=== PATIENT | female | born 1930 | race Caucasian/White ===

== ENCOUNTER 2016-10-14 10:04 | Inpatient (IN) | payer OTHER ==
[~2016-10-14] VITALS: Ht 144.8 cm; Wt 116.8 kg
[~2016-10-14 10:04] MED LIST: ACET-1311 PO; ATV/1 PO; CARB25TA12 PO; EZET10TA63 PO; FURO80TA63 PO; IPRASOL4 INH; METO25TA3 PO; ONDA4TAB46 PO; OXYC-57 PO; POLY335019 PO; PRLSR20 PO; ROPI1TAB PO; SERT-234 PO; SIMV40TA2 PO
[2016-10-14 11:30] VITALS: BP 125/78; PULSE 65; TEMP 36.6; Ht 144.8 cm; Wt 116.8 kg
[2016-10-14] MEDS ORDERED: ALUMINUM/MAGNESIUM/SIMETH (MAALOX MAX) 30 ML UDC PO PRN (12:30)
[2016-10-14] MEDS ORDERED: ONDANSETRON INJ 2 MG/ML 2 ML VIAL IV PRN (12:30)
[2016-10-14] MEDS ORDERED: ACETAMINOPHEN 325 MG TAB PO PRN (12:30)
--- NOTE | 2016-10-14 12:42 | History and Physical ---
History & Physical Date & Time of Service: Oct 14, 2016 at 12:26 Chief Complaint: Infected Left Thigh Wound Primary Care Physician: Roby Saavedra M.D. History of Present Illness Source: patient, family (daugther) Pt is a 68 yo female with hx of Afib, diastolic CHF, DVT. CKD, GERD, parkinson' s who was initially diagnosed with a DVT in july and was placed on coumadin. Pt's daughter reports INR became elevated in ' and developed a hematoma in the left thigh. She was evaluated by Dr Roman at [facility] where hematoma was evacuated. She was subsequently following up with wound care and was placed on a wound vac. Per daughter, there was some disagreement with the care in relation to the dressings used and arrangements were made to continue care at wound care center here in [place]. Pt saw wound care initially on 10/08 in which wound was debrided and cx. Pt subsequently followed up with Dr. Abbott on 10/14 in which it was determined that enterococcus was cultured out. Pt was also seen by Dr Frazier (plastic surgery) in which further surgical intervention was not suggested. Pt was admitted to [facility] as a direct admit for IV antibiotics and for possible irrigating wound vac placement. Pt denies any fevers, chills, N/V/D, abd pain, chest pain or shortness of breath. Pt does report seeping yellowish, sometimes red drainage from wound site. Pt no longer taking coumadin and has had a IVC filter placed. Social History Smoking Status: Former Smoker (quit 10 yrs ago but smokes 1ppd for 20 yrs) Smokeless Tobacco Use: No Alcohol Use: none Drug Use: none Marital Status: Occupational Status: retired Multi-Drug Resistant Organisms History of MDRO: Yes Type of MDRO: VRE Allergies Coded Allergies: Ciprofloxacin (Unverified Allergy, Intermediate, RASH, 10/08/16) Home Medications Scheduled Acetaminophen (Tylenol), 650 MG PO q4hrs Carbidopa/Levodopa (Sinemet 25MG/100MG), 1 TAB PO DAILY Ezetimibe (Zetia), 10 MG PO DAILY Furosemide (Lasix), 80 MG PO BID Ipratropium-Albuterol (Duoneb), 1 TREATMENT INH Q4H Lorazepam (Ativan), 1 MG PO TID Metoprolol Succ (Toprol Xl) (Toprol-Xl), 25 MG PO DAILY Omeprazole (Prilosec), 20 MG PO DAILY Ropinirole (Requip), 2 MG PO TID Sertraline (Zoloft), 1 TAB PO DAILY Simvastatin (Zocor), 40 MG PO QPM Scheduled PRN Ondansetron Hcl (Zofran), 4 MG PO q4hrs PRN for Nausea Oxycodone/Acetaminophen 5MG/325MG (Percocet 5MG/325MG), 1 TABLET PO Q4H PRN for Pain Polyethylene Glycol 3350 (Miralax), 17 GM PO DAILY PRN for Constipation Review of Systems Constitutional: + weakness, + fatigue, No fever, No chills, No sweats, No weight loss ENT: No hearing loss, No unusual epistaxis, No nasal symptoms, No sore throat, No tinnitus Respiratory: No cough, No sputum, No wheezing, No shortness of breath, No dyspnea on exertion Cardiovascular: + edema, No chest pain, No orthopnea, No PND Abdomen: No pain, No nausea, No vomiting, No diarrhea Genitourinary - Female: No dysuria, No urinary frequency, No urinary urgency, No urinary incontinence Neurologic: No memory loss, No paralysis, No weakness Psychiatric: No depression symptoms, No anhedonism, No anxiety, No insomnia Endocrine: No fatigue, No excessive thirst Integumentary: + problem reported (draining wound on left hip), No rash, No itch Allergic / Immunologic: No environmental allergies, No seasonal allergies, No pet sensitivities Physical Exam Vital Signs Date Time Temp Pulse Resp B/P (MAP) Pulse Ox O2 Delivery O2 Flow Rate FiO2 10/14/16 11:30 36.6 65 18 125/78 General Appearance: WD/WN, + mild distress Head: normocephalic, atraumatic Eyes: normal inspection, PERRL, EOMI, sclerae normal Neck: supple, no adenopathy, thyroid normal, no JVD Respiratory/Chest: chest non-tender, no respiratory distress, no accessory muscle use, + decreased breath sounds Cardiovascular: regular rate, rhythm, no gallop, no JVD, no murmur Abdomen/GI: normal bowel sounds, non tender, soft, no organomegaly, no pulsatile mass Back: normal inspection, no CVA tenderness, no muscle spasm, normal range of motion Neurologic/Psych: alert, normal mood/affect, normal reflexes, oriented x 3 Skin: normal color, warm/dry, no rash, + pertinent finding (left hip wound granualtion tissue noted, serosanguionus drainage, no pain, dressing intact) Diagnostics Laboratory Results Results Past 24 Hours Test 10/14/16 12:22 10/14/16 12:23 Range/Units Microbiology Results 10/14/16 Blood Culture, Jack Batch Pending 10/14/16 Blood Culture, Jack Batch Pending Impression Assessment and Plan Pt is a 86 yo female with left hip wound ongoing for 3 months, previously from evacuation of left hip hematoma few months ago after was diagnosed with DVT and placed on coumadin back in july. Pt presents to [facility] as a direct admit from wound clinic for worsening left hip wound, and enterococcus growth noted on cx from debridement on 10/08 Left hip wound - Cont dressing and wound vac care. Cont wound care for possibility of irrigating wound vac. Obtain CBC. Start on daptomycin at this time based on sens and consult ID for further recs. Consult PT/OT as well Diastolic CHF - Not noted to be in exacerbation, will cont lasix and metoprolol , euvolemic at this time, obtain PRP CKD unknown stage, obtain PRP. Cont lasix at this time Recent DVT in july with IVC filter in place, no longer on coumadin Parkinsons, stable, cont sinemet and requip Dyslipdemia cont zocor DVT ppx with heparin Advanced Directives Existing Living Will: No Existing Power of Press Loader: Yes (VERA) VTE Prophylaxis VTE Risk Assessment Done? Y/N: Yes Risk Level: Moderate
[2016-10-14 13:15] LABS: BASO % 0.3 %; BASO ABS # 0.04 K/uL (0-0.2); COMPLETE YES; EOS % 4.2 %; HEMATOCRIT 43.2 % (37-47); IG% 0.3 %; LYMPH % 19.8 %; LYMPH ABS # 2.27 K/uL (1.2-3.4); MEAN CELL VOLUME 92.1 fL (80-100); MEAN CORPUSCULAR HEMOGLOBIN 26.9 pg (25-34); MEAN CORPUSCULAR HGB CONC 29.2 g/dl (32-36); MEAN PLATELET VOLUME 10.8 fL (7.4-10.4); MONO % 9.8 %; NEUT % 65.6 %; PLATELET COUNT 223 K/uL (130-400); RED BLOOD COUNT 4.69 M/uL (4.2-5.4); WHITE BLOOD COUNT 11.45 K/uL (4.8-10.8)
[2016-10-14 13:21] LABS: PROTHROMBIN TIME (PATIENT) 10.9 SECONDS (9.0-12.0)
[2016-10-14 13:32] LABS: BUN/CREATININE RATIO 20.6 (10-20); CREATININE 1.5 mg/dl (0.60-1.20); POTASSIUM 3.7 mmol/L (3.5-5.1)
[2016-10-14 13:36] LABS: ALB/GLOB RATIO 0.5 (0.9-2); CALCIUM 9.1 mg/dl (8.5-10.1)
[2016-10-14] MEDS ORDERED: LORAZEPAM 1 MG TAB PO SCH (14:00)
[2016-10-14] MEDS: DAPTOmycin IV 500 MG in SODIUM CHLORIDE 0.9% 50ML 50 ML IV SCH (14:26)
[2016-10-14] MEDS: ROPINIROLE HCL 1 MG TAB PO SCH ×2 (14:42→21:02)
[2016-10-14] MEDS: HEPARIN SOD 5000 UNIT/0.5 ML CARP SQ SCH ×2 (14:42→21:01)
[2016-10-14] MEDS ORDERED: NURSING VERBAL MED ORDER ONE (15:00)
[2016-10-14] MEDS ORDERED: LORAZEPAM 1 MG TAB PO PRN (15:00)
[2016-10-14] MEDS: OXYCODONE/ACETAMINOPHEN 5-325 TAB PO PRN (15:11)
--- NOTE | 2016-10-14 15:35 | Progress Note ---
Progress Note Date of Service Oct 14, 2016. Progress Note ID Consult Dictated #[id number] A/P: 1. Polymicrobial wound infection - E. faecalis, VRE 2. Leukocytosis -Agree with Dapto, will continue -Will likely require prolonged course with follow up at wound center -Will check baseline cpk, will need weekly cbc, cmp, esr, cpk while on abx -Will follow, thank you
[2016-10-14 15:49] VITALS: PULSE 88; O2SAT 98
[2016-10-14] MEDS: ALBUT/IPRATROP 3MG/0.5MG NEB 3 ML VIAL INH SCH ×2 (16:00→19:58)
--- NOTE | 2016-10-14 16:13 | INFECT. DISEASE CONSULTATION ---
DATE OF CONSULTATION: 10/14/2016 REQUESTING PHYSICIAN: Chris Rizo DO HISTORY OF PRESENT ILLNESS: This is an 86-year-old female who was a direct admission from the [facility]. She is a relatively new patient at the W[facility] Care Center and was initially seen there on 10/08/2016. She has had a longstanding left hip wound, which was previously treated at [facility] with a wound VAC. She is unable to tell me how long the wound VAC has been in place. She is unable to tell me if she was previously on antibiotics for this. In any event, she did undergo a wound culture on the at the [facility] here and cultures from that grew E. faecalis which was pansensitive, VRE, and peptostreptococcus. Culture results were reviewed today and the patient was subsequently transferred to the hospital for direct admission, PICC line placement and a change to an irrigating VAC. She was started on daptomycin today and appears to be tolerating this well. She does have a mild leukocytosis of 11.4. She denies any fevers or chills. She denies any pain in the hip, but does admit to some tenderness around the wound itself. She denies any chest pain, cough, shortness of breath, nausea, vomiting, diarrhea or abdominal pain. REVIEW OF SYSTEMS: Her remaining review of systems are reviewed and are unremarkable. PAST MEDICAL HISTORY: She has a medical history of AFib, CHF, history of DVT, chronic kidney disease, GERD and Parkinson's disease. SOCIAL HISTORY: Significant for a history of tobacco use. She denies any drug use or alcohol use. ALLERGIES: SHE HAS ALLERGY TO CIPRO. FAMILY HISTORY: Noncontributory. MEDICATIONS: Include Sinemet, Zetia, Toprol-XL, Zoloft, Protonix, Zocor, Lasix, DuoNebs, Ativan, subQ heparin, Requip, daptomycin, Tylenol, Maalox, Zofran and Percocet. PHYSICAL EXAMINATION: VITAL SIGNS: Temperature is 36.6, pulse 65, respiratory rate 18, blood pressure 125/78. GENERAL: She is awake, alert and oriented x3. She is in no acute distress. HEENT: Mucous membranes are moist. HEART: Regular. LUNGS: Clear bilaterally. ABDOMEN: Soft, nontender, nondistended. EXTREMITIES: There is no lower extremity edema bilaterally. Examination of the left thigh does reveal a wound with foul-smelling drainage. She also has significant necrosis and surrounding erythema and warmth. There is tenderness to palpation. LABORATORY STUDIES: CBC reveals a white blood cell count of 11.4, hemoglobin is 12.6, platelets are 223. Chemistry panel reveals a sodium of 140, potassium 3.7, chloride 96, bicarbonate 39, BUN 31, creatinine 1.5, glucose is 164. Previous culture again as Enterococcus faecalis, which was pansensitive and Enterococcus faecium, which is VRE. Blood cultures are pending. There is no imaging to review. ASSESSMENT AND PLAN: Infected left hip wound, polymicrobial. She is certainly indicated for daptomycin and will be continued on this. A PICC line has already been placed. Her wound is being placed during my examination. She will likely need a prolonged course of antibiotics and she will be planned to be followed by the infectious diseases service while in the hospital and at the [facility] post discharge from the hospital. Thank you for this consultation.
[2016-10-14 19:58] VITALS: PULSE 84; O2SAT 97
[2016-10-14] MEDS ORDERED: MICONAZOLE NITRATE POWDER 43 GM ONE (20:52)
[2016-10-14] MEDS: FUROSEMIDE 80 MG TAB PO SCH (21:00)
[2016-10-14] MEDS: SIMVASTATIN 40 MG TAB PO SCH (21:02)
[2016-10-15] VITALS (7 sets, daily range): BP systolic 105–117; BP diastolic 65–72; PULSE 68–80; TEMP 36.7–36.8; O2SAT 90–99
[2016-10-15] MEDS: HEPARIN SOD 5000 UNIT/0.5 ML CARP SQ SCH ×3 (05:51→21:44)
[2016-10-15 05:52] LABS: BASO % 0.4 %; BASO ABS # 0.05 K/uL (0-0.2); COMPLETE YES; EOS % 2.9 %; HEMATOCRIT 40.2 % (37-47); IG% 0.2 %; LYMPH % 19.8 %; LYMPH ABS # 2.46 K/uL (1.2-3.4); MEAN CELL VOLUME 91.8 fL (80-100); MEAN CORPUSCULAR HEMOGLOBIN 27.4 pg (25-34); MEAN CORPUSCULAR HGB CONC 29.9 g/dl (32-36); MONO % 9.7 %; PLATELET COUNT 206 K/uL (130-400); RED BLOOD COUNT 4.38 M/uL (4.2-5.4); WHITE BLOOD COUNT 12.45 K/uL (4.8-10.8)
[2016-10-15 06:29] LABS: BUN/CREATININE RATIO 25.1 (10-20); CALCIUM 8.7 mg/dl (8.5-10.1); CREATININE 1.3 mg/dl (0.60-1.20); POTASSIUM 3.9 mmol/L (3.5-5.1)
[2016-10-15] MEDS: ALBUT/IPRATROP 3MG/0.5MG NEB 3 ML VIAL INH SCH ×4 (07:18→19:32)
[2016-10-15] MEDS: ROPINIROLE HCL 1 MG TAB PO SCH ×3 (08:53→21:47)
[2016-10-15] MEDS: METOPROLOL SUCC 25MG EXT REL TAB PO SCH (08:53)
[2016-10-15] MEDS: EZETIMIBE 10MG TAB PO SCH (08:53)
[2016-10-15] MEDS: CARBIDOPA/LEVODOPA 25/100MG TAB PO SCH (08:53)
[2016-10-15] MEDS: PANTOprazole SOD 40 MG TAB PO SCH (08:53)
[2016-10-15] MEDS: FUROSEMIDE 80 MG TAB PO SCH ×2 (08:53→16:45)
[2016-10-15] MEDS: SERTRALINE HCL 100 MG TAB PO SCH (08:53)
[2016-10-15] MEDS: OXYCODONE/ACETAMINOPHEN 5-325 TAB PO PRN ×2 (09:00→15:16)
--- NOTE | 2016-10-15 11:10 | Progress Note ---
Subjective Date of Service: Oct 15, 2016. Subjective Pt evaluation today including: conversation w/ patient, conversation w/ family (daughter), physical exam, lab review, review of inpatient medication list Pain: denies pain PO Intake: adequate Voiding: no voiding problems patient doing well, no acute issues discussed getting PICC line, her daughter will sign her consent appreciate ID note, plan for weeks of Daptomycin d/w CM, will need authorization for the wound vac and IV Daptomycin, plan on being here over the weekend Review of Systems Neurologic: + weakness, + balance problems All Other Systems: Reviewed and Negative Medications Current Inpatient Medications Medications (Trade) Dose Ordered Sig/Marisela Route Start Time Stop Time Status Last Admin Dose Admin Heparin Sodium (Porcine) (Heparin Sq 5000 Unit/0.5ml) 5,000 unit Q8H SQ 10/14/16 14:00 11/13/16 13:59 10/15/16 05:51 5,000 UNIT Acetaminophen (Tylenol Tab) 650 mg Q4H PRN PO 10/14/16 12:30 11/13/16 12:29 Al Hydrox/Mg Hydrox/Simethicone (Maalox Max Susp) 15 ml Q4H PRN PO 10/14/16 12:30 11/13/16 12:29 Ondansetron HCl (Zofran Inj) 4 mg Q6H PRN IV 10/14/16 12:30 11/13/16 12:29 Daptomycin 500 mg/ Sodium Chloride 60 ml @ 100 mls/hr DAILY@1300 IV 10/14/16 13:00 10/24/16 12:59 10/14/16 14:26 100 MLS/HR Carbidopa/Levodopa (Sinemet 25/ 100MG Tab) 1 tab DAILY PO 10/15/16 08:00 11/14/16 07:59 10/15/16 08:53 1 TAB EZETIMIBE (Zetia Tab) 10 mg DAILY PO 10/15/16 08:00 11/14/16 07:59 10/15/16 08:53 10 MG Furosemide (Lasix Tab) 80 mg BID17 PO 10/14/16 20:00 11/13/16 19:59 10/15/16 08:53 80 MG Metoprolol Succinate (Toprol Xl Tab) 25 mg DAILY PO 10/15/16 08:00 11/14/16 07:59 10/15/16 08:53 25 MG Oxycodone/ Acetaminophen (Percocet 5-325mg Tab) 1 tab Q4H PRN PO 10/14/16 12:30 10/28/16 12:29 10/15/16 09:00 1 TAB Ropinirole HCl (Requip Tab) 2 mg TID PO 10/14/16 14:00 11/13/16 13:59 10/15/16 08:53 2 MG Sertraline HCl (Zoloft Tab) 100 mg DAILY PO 10/15/16 08:00 11/14/16 07:59 10/15/16 08:53 100 MG Simvastatin (Zocor Tab) 40 mg QPM PO 10/14/16 21:00 11/13/16 20:59 10/14/16 21:02 40 MG Pantoprazole Sodium (Protonix Tab) 40 mg QAM PO 10/15/16 08:00 11/14/16 07:59 10/15/16 08:53 40 MG Albuterol/ Ipratropium (Duoneb) 3 ml QIDR INH 10/14/16 16:00 11/13/16 15:59 10/15/16 07:18 3 ML Lorazepam (Ativan Tab) 1 mg TID PRN PO 10/14/16 15:00 11/13/16 14:59 Objective Vital Signs Date Time Temp Pulse Resp B/P (MAP) Pulse Ox O2 Delivery O2 Flow Rate FiO2 10/15/16 08:50 Nasal Cannula 3.0 10/15/16 07:21 36.7 74 20 117/72 (87) 99 Nasal Cannula 2.0 10/15/16 07:20 68 20 98 Nasal Cannula 2.0 10/15/16 00:05 36.8 75 20 105/65 (78) 95 Nasal Cannula 2.0 10/14/16 23:59 Nasal Cannula 2.0 10/14/16 19:58 84 18 97 Nasal Cannula 2.0 10/14/16 16:00 Nasal Cannula 2.0 10/14/16 15:49 88 18 98 Nasal Cannula 2.0 10/14/16 11:30 36.6 65 18 125/78 Nasal Cannula 3.0 Physical Exam General Appearance: no apparent distress, + obese Eyes: normal inspection, EOMI, sclerae normal ENT: normal ENT inspection, hearing grossly normal, pharynx normal Neck: supple, no adenopathy, no JVD, trachea midline Respiratory/Chest: chest non-tender, lungs clear, normal breath sounds, no respiratory distress, no accessory muscle use Cardiovascular: regular rate, rhythm, no edema, no gallop, no JVD, no murmur Abdomen: normal bowel sounds, non tender, soft, no organomegaly 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, no motor/sensory deficits, alert, normal mood/affect, oriented x 3 Skin: + pertinent finding (left thigh wound, dressed, non-tender) Laboratory Results Last 24 Hours Test 10/14/16 12:43 10/14/16 12:55 10/14/16 15:58 10/15/16 05:22 Prothrombin Time 10.9 SECONDS Prothromb Time International Ratio 1.0 Activated Partial Thromboplast Time 26.5 SECONDS Partial Thromboplastin Ratio 1.0 White Blood Count 11.45 K/uL 12.45 K/uL Red Blood Count 4.69 M/uL 4.38 M/uL Hemoglobin 12.6 g/dL 12.0 g/dL Hematocrit 43.2 % 40.2 % Mean Corpuscular Volume 92.1 fL 91.8 fL Mean Corpuscular Hemoglobin 26.9 pg 27.4 pg Mean Corpuscular Hemoglobin Concent 29.2 g/dl 29.9 g/dl Platelet Count 223 K/uL 206 K/uL Mean Platelet Volume 10.8 fL 11.0 fL Neutrophils (%) (Auto) 65.6 % 67.0 % Lymphocytes (%) (Auto) 19.8 % 19.8 % Monocytes (%) (Auto) 9.8 % 9.7 % Eosinophils (%) (Auto) 4.2 % 2.9 % Basophils (%) (Auto) 0.3 % 0.4 % Neutrophils # (Auto) 7.51 K/uL 8.35 K/uL Lymphocytes # (Auto) 2.27 K/uL 2.46 K/uL Monocytes # (Auto) 1.12 K/uL 1.21 K/uL Eosinophils # (Auto) 0.48 K/uL 0.36 K/uL Basophils # (Auto) 0.04 K/uL 0.05 K/uL RDW Standard Deviation 59.9 fL 59.0 fL RDW Coefficient of Variation 17.6 % 17.6 % Immature Granulocyte % (Auto) 0.3 % 0.2 % Immature Granulocyte # (Auto) 0.03 K/uL 0.02 K/uL Sodium Level 140 mmol/L 142 mmol/L Potassium Level 3.7 mmol/L 3.9 mmol/L Chloride Level 96 mmol/L 98 mmol/L Carbon Dioxide Level 39 mmol/L 39 mmol/L Anion Gap 5.0 mmol/L 5.0 mmol/L Blood Urea Nitrogen 31 mg/dl 33 mg/dl Creatinine 1.50 mg/dl 1.30 mg/dl Est Creatinine Clear Calc Drug Dose 29.7 ml/min 34.3 ml/min Estimated GFR () 36.2 43.0 Estimated GFR (Non- 31.2 37.1 BUN/Creatinine Ratio 20.6 25.1 Random Glucose 164 mg/dl 99 mg/dl Calcium Level 9.1 mg/dl 8.7 mg/dl Total Bilirubin 0.4 mg/dl Aspartate Amino Transf (AST/SGOT) 13 U/L Alanine Aminotransferase (ALT/SGPT) 7 U/L Alkaline Phosphatase 73 U/L Total Protein 7.3 gm/dl Albumin 2.4 gm/dl Globulin 4.9 gm/dl Albumin/Globulin Ratio 0.5 Total Creatine Kinase 17 U/L Assessment and Plan Pt is a 86 yo female with left hip wound ongoing for 3 months, previously from evacuation of left hip hematoma few months ago after was diagnosed with DVT and placed on coumadin back in july. Pt presents to [facility] as a direct admit from wound clinic for worsening left hip wound, and enterococcus growth noted on cx from debridement on 10/08 - Left hip wound - outpatient culture grew VRE, infectious disease recommends Daptomycin IV daily wound care recommending an irrigating wound vac which can be difficult to get insurance authorization for labs and vitals stable will get PICC line placed d/w CM, will need to get insurance authorization for wound vac, Dapto, anticipate patient here over the weekend Diastolic CHF - euvolemic, no exacerbation, will cont lasix and metoprolol CKD stage III - stable, continue Lasix as prescribed Recent DVT in july with IVC filter in place, no longer on coumadin Parkinsons, stable, cont sinemet and requip Dyslipdemia cont zocor DVT ppx with heparin SC
--- NOTE | 2016-10-15 11:11 | Medical Student: [facility] ---
Med Student Progress Note Date of Service Oct 15, 2016. Subjective Pt evaluation today including: conversation w/ patient, conversation w/ family (daughter Ivania), physical exam, chart review Pain: 0 PO Intake: good Voiding: no voiding problems Ms Deena Ybarra is an 86 yo obese female with a 2 month history of a poorly healing wound on her L hip that was recently cultured and found to be VRE. She was admitted yesterday from the wound care clinic for placement of a wound vac with saline wash after her wound was found to be more wet and warm than normal. She notes no fevers, chills, or other signs of infection. She denies headache, nausea, vomiting, loss of appetite, chest pain, shortness of breath, diarrhea or constipation. She is a resident of a skilled care facility in [place] and would like to go back there prior to going home. Review of Systems Constitutional: + see HPI, No fever, No chills, No sweats, No weight loss, No weakness, No fatigue Eyes: No problem reported ENT: No problem reported Respiratory: No problem reported Cardiac: No problem reported Abdomen: No problem reported Musculoskeletal: No problem reported Female : No problem reported Neurologic: No problem reported Psychiatric: No problem reported Heme: No problem reported Skin: + new/changing skin lesions (5cm wound on L lateral thigh/hip) Objective Vital Signs Date Time Temp Pulse Resp B/P (MAP) Pulse Ox O2 Delivery O2 Flow Rate FiO2 10/15/16 08:50 Nasal Cannula 3.0 10/15/16 07:21 36.7 74 20 117/72 (87) 99 Nasal Cannula 2.0 10/15/16 07:20 68 20 98 Nasal Cannula 2.0 10/15/16 00:05 36.8 75 20 105/65 (78) 95 Nasal Cannula 2.0 10/14/16 23:59 Nasal Cannula 2.0 10/14/16 19:58 84 18 97 Nasal Cannula 2.0 10/14/16 16:00 Nasal Cannula 2.0 10/14/16 15:49 88 18 98 Nasal Cannula 2.0 10/14/16 11:30 36.6 65 18 125/78 Nasal Cannula 3.0 Physical Exam Comments: Vitals: See above. General: Wd/Wn. Obese, resting comfortably in on distress. HEENT: NCAT, EOMI, PERRLA. No anterior or posterior cervical lymphadenopathy. Moist mucus membranes. CV: Heart sounds soft. S1, S2. Slight decrescendo systolic murmur heard best over L second intercostal space. Regular rate and rhythm. Resp: Slight expiratory wheeze in L lower lobe. Other lobes clear to auscultation. No respiratory distress or accessory muscle use. Abdomen: soft, non-tender, non-distended. active bowel sounds. Obese. Extremities: Trace edema bilaterally of lower legs. Erythema over lateral and anterior lower legs, chronic. Wound with vac on L lateral thigh/hip. Some warmth and erythema round vac, otherwise clean and dressing intact. Neuro/Psych: AOx3. No depression or anxiety. Laboratory Results Last 24 Hours Test 10/14/16 12:43 10/14/16 12:55 10/14/16 15:58 10/15/16 05:22 Prothrombin Time 10.9 SECONDS Prothromb Time International Ratio 1.0 Activated Partial Thromboplast Time 26.5 SECONDS Partial Thromboplastin Ratio 1.0 White Blood Count 11.45 K/uL 12.45 K/uL Red Blood Count 4.69 M/uL 4.38 M/uL Hemoglobin 12.6 g/dL 12.0 g/dL Hematocrit 43.2 % 40.2 % Mean Corpuscular Volume 92.1 fL 91.8 fL Mean Corpuscular Hemoglobin 26.9 pg 27.4 pg Mean Corpuscular Hemoglobin Concent 29.2 g/dl 29.9 g/dl Platelet Count 223 K/uL 206 K/uL Mean Platelet Volume 10.8 fL 11.0 fL Neutrophils (%) (Auto) 65.6 % 67.0 % Lymphocytes (%) (Auto) 19.8 % 19.8 % Monocytes (%) (Auto) 9.8 % 9.7 % Eosinophils (%) (Auto) 4.2 % 2.9 % Basophils (%) (Auto) 0.3 % 0.4 % Neutrophils # (Auto) 7.51 K/uL 8.35 K/uL Lymphocytes # (Auto) 2.27 K/uL 2.46 K/uL Monocytes # (Auto) 1.12 K/uL 1.21 K/uL Eosinophils # (Auto) 0.48 K/uL 0.36 K/uL Basophils # (Auto) 0.04 K/uL 0.05 K/uL RDW Standard Deviation 59.9 fL 59.0 fL RDW Coefficient of Variation 17.6 % 17.6 % Immature Granulocyte % (Auto) 0.3 % 0.2 % Immature Granulocyte # (Auto) 0.03 K/uL 0.02 K/uL Sodium Level 140 mmol/L 142 mmol/L Potassium Level 3.7 mmol/L 3.9 mmol/L Chloride Level 96 mmol/L 98 mmol/L Carbon Dioxide Level 39 mmol/L 39 mmol/L Anion Gap 5.0 mmol/L 5.0 mmol/L Blood Urea Nitrogen 31 mg/dl 33 mg/dl Creatinine 1.50 mg/dl 1.30 mg/dl Est Creatinine Clear Calc Drug Dose 29.7 ml/min 34.3 ml/min Estimated GFR () 36.2 43.0 Estimated GFR (Non- 31.2 37.1 BUN/Creatinine Ratio 20.6 25.1 Random Glucose 164 mg/dl 99 mg/dl Calcium Level 9.1 mg/dl 8.7 mg/dl Total Bilirubin 0.4 mg/dl Aspartate Amino Transf (AST/SGOT) 13 U/L Alanine Aminotransferase (ALT/SGPT) 7 U/L Alkaline Phosphatase 73 U/L Total Protein 7.3 gm/dl Albumin 2.4 gm/dl Globulin 4.9 gm/dl Albumin/Globulin Ratio 0.5 Total Creatine Kinase 17 U/L Assessment and Plan Assessment and Plan: Deena Ybarra is an 86 y female admitted from the wound clinic yesterday with a non-healing wound on the L lateral thigh/hip with concern for infection. Individual assessment and plan are as follows: 1. Wound on L lateral thigh: Wound vac in place with saline wash. On daptomycin 500mg qd per ID. Cultures one week ago showed vancomycin resistance. Will consent for PICC line in anticipation of 2 weeks dapto at [facility]. Blood cultures pending. 2. Parkinson Disease: Continue Sinemet 25/100 qd. 3. Hyperlipidemia: Continue zetia 10mg qd. 4. Diastolic CHF: Continue furosemide 80mg bid. Continue Metoprolol succinate 25mg qd. 5. Bronchitis: Resolved. Duonebs q3 prn. 6. Anxiety: Lorazepam 1mg tid prn. 7. Restless Leg: Requip 2mg tid. 8. Chronic pain: Percocet q4 prn. 9. DVT proph: Heparin 5000units q8. IVC filter in place following DVT two months ago, July 30. Dispo: Back to SNF in [place] following removal of wound vac, sooner if insurance will cover. Continue iv daptomycin x2 weeks. Followup with wound clinic as outpatient. Continued [facility] stay due to: other (wound vac in place, IV abx.) Discharge planning: fdc facility (in [place])
--- NOTE | 2016-10-15 12:27 | Progress Note ---
Subjective Date of Service: Oct 15, 2016. Subjective pt tolerating dapto, had vac placed yesterday. for picc line, awaiting insurance approval of dapto. wbc slightly elevated today, tolerating abx, afebrile. no overnight events. Objective Vital Signs Date Time Temp Pulse Resp B/P (MAP) Pulse Ox O2 Delivery O2 Flow Rate FiO2 10/15/16 11:18 76 20 90 Nasal Cannula 2.0 10/15/16 08:50 Nasal Cannula 3.0 10/15/16 07:21 36.7 74 20 117/72 (87) 99 Nasal Cannula 2.0 10/15/16 07:20 68 20 98 Nasal Cannula 2.0 10/15/16 00:05 36.8 75 20 105/65 (78) 95 Nasal Cannula 2.0 10/14/16 23:59 Nasal Cannula 2.0 10/14/16 19:58 84 18 97 Nasal Cannula 2.0 10/14/16 16:00 Nasal Cannula 2.0 10/14/16 15:49 88 18 98 Nasal Cannula 2.0 Laboratory Results Last 24 Hours Test 10/14/16 12:43 10/14/16 12:55 10/14/16 15:58 10/15/16 05:22 Prothrombin Time 10.9 SECONDS Prothromb Time International Ratio 1.0 Activated Partial Thromboplast Time 26.5 SECONDS Partial Thromboplastin Ratio 1.0 White Blood Count 11.45 K/uL 12.45 K/uL Red Blood Count 4.69 M/uL 4.38 M/uL Hemoglobin 12.6 g/dL 12.0 g/dL Hematocrit 43.2 % 40.2 % Mean Corpuscular Volume 92.1 fL 91.8 fL Mean Corpuscular Hemoglobin 26.9 pg 27.4 pg Mean Corpuscular Hemoglobin Concent 29.2 g/dl 29.9 g/dl Platelet Count 223 K/uL 206 K/uL Mean Platelet Volume 10.8 fL 11.0 fL Neutrophils (%) (Auto) 65.6 % 67.0 % Lymphocytes (%) (Auto) 19.8 % 19.8 % Monocytes (%) (Auto) 9.8 % 9.7 % Eosinophils (%) (Auto) 4.2 % 2.9 % Basophils (%) (Auto) 0.3 % 0.4 % Neutrophils # (Auto) 7.51 K/uL 8.35 K/uL Lymphocytes # (Auto) 2.27 K/uL 2.46 K/uL Monocytes # (Auto) 1.12 K/uL 1.21 K/uL Eosinophils # (Auto) 0.48 K/uL 0.36 K/uL Basophils # (Auto) 0.04 K/uL 0.05 K/uL RDW Standard Deviation 59.9 fL 59.0 fL RDW Coefficient of Variation 17.6 % 17.6 % Immature Granulocyte % (Auto) 0.3 % 0.2 % Immature Granulocyte # (Auto) 0.03 K/uL 0.02 K/uL Sodium Level 140 mmol/L 142 mmol/L Potassium Level 3.7 mmol/L 3.9 mmol/L Chloride Level 96 mmol/L 98 mmol/L Carbon Dioxide Level 39 mmol/L 39 mmol/L Anion Gap 5.0 mmol/L 5.0 mmol/L Blood Urea Nitrogen 31 mg/dl 33 mg/dl Creatinine 1.50 mg/dl 1.30 mg/dl Est Creatinine Clear Calc Drug Dose 29.7 ml/min 34.3 ml/min Estimated GFR () 36.2 43.0 Estimated GFR (Non- 31.2 37.1 BUN/Creatinine Ratio 20.6 25.1 Random Glucose 164 mg/dl 99 mg/dl Calcium Level 9.1 mg/dl 8.7 mg/dl Total Bilirubin 0.4 mg/dl Aspartate Amino Transf (AST/SGOT) 13 U/L Alanine Aminotransferase (ALT/SGPT) 7 U/L Alkaline Phosphatase 73 U/L Total Protein 7.3 gm/dl Albumin 2.4 gm/dl Globulin 4.9 gm/dl Albumin/Globulin Ratio 0.5 Total Creatine Kinase 17 U/L Assessment and Plan (1) Unspecified open wound, left hip, sequela Assessment & Plan: continue dapto for vre hip wound. will need weekly cbc,cmp, esr, cpk while on abx. will plan to follow at wound center post d/c. no contraindication to d/c from ID standpoint when plan for abx in place. Continued [facility] stay due to: other (wound vac in place, IV abx.) Discharge planning: fpc facility (in [place])
[2016-10-15] MEDS: DAPTOmycin IV 500 MG in SODIUM CHLORIDE 0.9% 50ML 50 ML IV SCH (13:21)
--- NOTE | 2016-10-15 13:47 | WOUND PROGRESS NOTE ---
DATE: 10/15/2016 SUBJECTIVE: The patient is seen today for reevaluation of a post-evacuated hematoma to the left thigh with associated underlying cellulitis. The patient was admitted yesterday due to failed outpatient therapy for intravenous antibiotic therapy along with irrigating wound VAC therapy. The patient has no complaints today. Denies any fever, chills or night sweats. Denies any significant pain, swelling or redness in the leg. OBJECTIVE: The patient's vital signs were reviewed and found to be unremarkable. The patient is afebrile. There is no substantial change in the measurements obtained yesterday at the wound site. There is, however, a decrease in central slough and no evidence of any significant necrotic tissue. There is no periwound erythema or edema noted. There is still an odor present, although reduced from yesterday. ASSESSMENT: Post-evacuation hematoma, left thigh with underlying cellulitis. PLAN: At this time, the site required no further debridement. The wound will continue to be managed with irrigating wound VAC 10 on 2 hours off with normal saline as well as black foam at 125 mm of negative pressure. We will continue the irrigating VAC for the next 72 hours and then anticipate transfer to a routine outpatient VAC for ongoing therapy. The patient will continue her current antibiotic therapy as prescribed. The patient will continue to be monitored while an inpatient and evaluated on an outpatient basis upon discharge.
[2016-10-15] MEDS: SIMVASTATIN 40 MG TAB PO SCH (21:47)
[2016-10-16] VITALS (7 sets, daily range): BP systolic 96–116; BP diastolic 57–76; PULSE 63–97; TEMP 36.4–36.6; O2SAT 85–100
[2016-10-16] MEDS: HEPARIN SOD 5000 UNIT/0.5 ML CARP SQ SCH ×3 (05:47→21:18)
[2016-10-16 06:53] LABS: BASO % 0.3 %; BASO ABS # 0.04 K/uL (0-0.2); COMPLETE YES; EOS % 3.9 %; HEMATOCRIT 40.2 % (37-47); IG% 0.2 %; LYMPH % 17.4 %; LYMPH ABS # 2.11 K/uL (1.2-3.4); MEAN CELL VOLUME 90.5 fL (80-100); MEAN CORPUSCULAR HEMOGLOBIN 25.9 pg (25-34); MEAN CORPUSCULAR HGB CONC 28.6 g/dl (32-36); MEAN PLATELET VOLUME 10.9 fL (7.4-10.4); NEUT % 68.2 %; PLATELET COUNT 221 K/uL (130-400); RED BLOOD COUNT 4.44 M/uL (4.2-5.4); WHITE BLOOD COUNT 12.15 K/uL (4.8-10.8)
[2016-10-16 07:20] LABS: BUN/CREATININE RATIO 22.6 (10-20); CALCIUM 8.6 mg/dl (8.5-10.1); CREATININE 1.6 mg/dl (0.60-1.20)
[2016-10-16] MEDS: ALBUT/IPRATROP 3MG/0.5MG NEB 3 ML VIAL INH SCH ×4 (07:34→19:05)
--- NOTE | 2016-10-16 08:40 | Progress Note ---
Subjective Date of Service: Oct 16, 2016. Subjective pt has no complaints or problems understands need to be on irrigating wound vac over weekend and then out on regular wound vac if wound improved Review of Systems Constitutional: + weakness, + fatigue, No fever, No chills Respiratory: No cough, No shortness of breath Cardiac: + edema, No chest pain, No orthopnea Abdomen: No pain, No nausea, No vomiting, No diarrhea Musculoskeletal: + joint pain, + muscle pain, + swelling Female : No dysuria, No urinary frequency Objective Vital Signs Date Time Temp Pulse Resp B/P (MAP) Pulse Ox O2 Delivery O2 Flow Rate FiO2 10/16/16 07:52 36.6 69 17 116/76 (89) 100 Nasal Cannula 2.0 10/16/16 07:34 72 20 96 Nasal Cannula 2.0 10/16/16 00:11 36.4 79 20 104/60 (75) 96 Nasal Cannula 3.0 10/15/16 23:59 Room Air 10/15/16 19:33 80 20 94 Nasal Cannula 2.0 10/15/16 16:00 Room Air 10/15/16 15:42 36.7 76 18 106/69 (81) 98 Nasal Cannula 2.0 10/15/16 15:27 76 20 90 Nasal Cannula 2.0 10/15/16 11:18 76 20 90 Nasal Cannula 2.0 10/15/16 08:50 Nasal Cannula 3.0 Physical Exam General Appearance: + mild distress, + obese Eyes: PERRL, EOMI Neck: supple, trachea midline Respiratory/Chest: chest non-tender, lungs clear, + decreased breath sounds ( bases) Cardiovascular: regular rate, rhythm, no murmur Abdomen: normal bowel sounds, non tender, soft Extremities: + pedal edema, + pertinent finding (vac on left hip site looks good no erythema or swelling) Neurologic/Psychiatric: alert, oriented x 3 Laboratory Results Last 24 Hours Test 10/16/16 06:29 White Blood Count 12.15 K/uL Red Blood Count 4.44 M/uL Hemoglobin 11.5 g/dL Hematocrit 40.2 % Mean Corpuscular Volume 90.5 fL Mean Corpuscular Hemoglobin 25.9 pg Mean Corpuscular Hemoglobin Concent 28.6 g/dl Platelet Count 221 K/uL Mean Platelet Volume 10.9 fL Neutrophils (%) (Auto) 68.2 % Lymphocytes (%) (Auto) 17.4 % Monocytes (%) (Auto) 10.0 % Eosinophils (%) (Auto) 3.9 % Basophils (%) (Auto) 0.3 % Neutrophils # (Auto) 8.29 K/uL Lymphocytes # (Auto) 2.11 K/uL Monocytes # (Auto) 1.21 K/uL Eosinophils # (Auto) 0.47 K/uL Basophils # (Auto) 0.04 K/uL RDW Standard Deviation 59.0 fL RDW Coefficient of Variation 17.6 % Immature Granulocyte % (Auto) 0.2 % Immature Granulocyte # (Auto) 0.03 K/uL Sodium Level 141 mmol/L Potassium Level 4.0 mmol/L Chloride Level 98 mmol/L Carbon Dioxide Level 38 mmol/L Anion Gap 5.0 mmol/L Blood Urea Nitrogen 36 mg/dl Creatinine 1.60 mg/dl Est Creatinine Clear Calc Drug Dose 27.8 ml/min Estimated GFR () 33.5 Estimated GFR (Non- 28.9 BUN/Creatinine Ratio 22.6 Random Glucose 83 mg/dl Calcium Level 8.6 mg/dl Assessment and Plan 86 yo female with left hip wound ongoing for 3 months, previously from evacuation of left hip hematoma after was diagnosed with DVT and placed on coumadin in july 2016. worsening left hip wound with enterococcus on cx from debridement on 10/08 - Left hip wound - outpatient culture grew VRE, infectious disease recommends Daptomycin IV daily wound care recommending an irrigating wound vac x 72 hours which will be complete after weekend PICC line placed Diastolic CHF - euvolemic, no exacerbation, CR did go up will reduce lasix to daily 10/16 CKD stage III - some worsening of Cr as above Parkinsons, conintues to be stable on sinemet and requip DVT ppx with heparin SC, recent DVT 07/[address] filter in [address] Continued [facility] stay due to: other (wound vac in place, IV abx.) Discharge planning: senior care facility (in [place])
[2016-10-16] MEDS: FUROSEMIDE 80 MG TAB PO SCH (08:52)
[2016-10-16] MEDS: EZETIMIBE 10MG TAB PO SCH (08:52)
[2016-10-16] MEDS: PANTOprazole SOD 40 MG TAB PO SCH (08:52)
[2016-10-16] MEDS: METOPROLOL SUCC 25MG EXT REL TAB PO SCH (08:52)
[2016-10-16] MEDS: SERTRALINE HCL 100 MG TAB PO SCH (08:52)
[2016-10-16] MEDS: CARBIDOPA/LEVODOPA 25/100MG TAB PO SCH (08:52)
[2016-10-16] MEDS: ROPINIROLE HCL 1 MG TAB PO SCH ×3 (08:53→19:19)
--- NOTE | 2016-10-16 09:20 | DIAGNOSTIC IMAGING REPORT ---
CHEST ONE VIEW PORTABLE HISTORY: chronic a-fib right picc placement COMPARISON: None. FINDINGS: The heart is enlarged. No pneumothorax. A right PICC terminates in the distal SVC. Trace bilateral pleural effusions and mild interstitial pulmonary edema. IMPRESSION: 1. The right PICC terminates in the distal SVC. 2. Mild interstitial pulmonary edema and trace bilateral pleural effusions. Electronically signed by: Shiva Nieto M.D. 10/16/2016 9:19 AM Dictated Date/Time: 10/16/2016 9:18 AM
[2016-10-16] MEDS: DAPTOmycin IV 500 MG in SODIUM CHLORIDE 0.9% 50ML 50 ML IV SCH (13:16)
[2016-10-16] MEDS: OXYCODONE/ACETAMINOPHEN 5-325 TAB PO PRN (13:26)
[2016-10-16] MEDS: SIMVASTATIN 40 MG TAB PO SCH (19:19)
[2016-10-17] VITALS (7 sets, daily range): BP systolic 104–119; BP diastolic 64–75; PULSE 64–78; TEMP 36.6–36.8; O2SAT 91–99
[2016-10-17 05:36] LABS: BASO % 0.2 %; BASO ABS # 0.03 K/uL (0-0.2); COMPLETE YES; EOS % 3.7 %; HEMATOCRIT 39.1 % (37-47); IG% 0.2 %; LYMPH % 15.5 %; LYMPH ABS # 1.94 K/uL (1.2-3.4); MEAN CELL VOLUME 91.4 fL (80-100); MEAN CORPUSCULAR HEMOGLOBIN 27.3 pg (25-34); MEAN CORPUSCULAR HGB CONC 29.9 g/dl (32-36); MEAN PLATELET VOLUME 10.9 fL (7.4-10.4); MONO % 9.9 %; NEUT % 70.5 %; PLATELET COUNT 214 K/uL (130-400); RED BLOOD COUNT 4.28 M/uL (4.2-5.4)
[2016-10-17] MEDS: HEPARIN SOD 5000 UNIT/0.5 ML CARP SQ SCH ×3 (05:52→21:29)
[2016-10-17 05:56] LABS: BUN/CREATININE RATIO 28.8 (10-20); CALCIUM 8.4 mg/dl (8.5-10.1); CREATININE 1.3 mg/dl (0.60-1.20); POTASSIUM 4.1 mmol/L (3.5-5.1)
[2016-10-17] MEDS: ALBUT/IPRATROP 3MG/0.5MG NEB 3 ML VIAL INH SCH ×4 (07:21→20:21)
--- NOTE | 2016-10-17 08:26 | Progress Note ---
Subjective Date of Service: Oct 17, 2016. Subjective pt with very little change, wound vac in place no new issues Review of Systems Constitutional: No fever, No chills Respiratory: No cough, No sputum Cardiac: No chest pain, No orthopnea Abdomen: No pain, No nausea Musculoskeletal: No joint pain, No muscle pain Objective Vital Signs Date Time Temp Pulse Resp B/P (MAP) Pulse Ox O2 Delivery O2 Flow Rate FiO2 10/17/16 08:07 36.6 75 20 104/64 (77) 92 Room Air 10/17/16 07:23 77 20 91 Room Air 10/17/16 00:38 Nasal Cannula 3.0 10/17/16 00:04 36.6 72 20 119/74 (89) 95 Nasal Cannula 2.0 10/16/16 19:30 Nasal Cannula 3.0 10/16/16 19:05 97 20 93 Nasal Cannula 2.0 10/16/16 16:00 Nasal Cannula 2.0 10/16/16 15:58 36.5 75 20 96/57 (70) 97 Nasal Cannula 2.0 10/16/16 15:00 63 20 97 Nasal Cannula 2.0 10/16/16 11:33 85 20 85 Room Air Physical Exam General Appearance: WD/WN, + obese Neck: supple, no JVD Respiratory/Chest: chest non-tender, lungs clear, normal breath sounds Cardiovascular: regular rate, rhythm, no murmur Abdomen: normal bowel sounds, non tender, soft Extremities: + pedal edema, + swelling Laboratory Results Last 24 Hours Test 10/17/16 05:20 White Blood Count 12.50 K/uL Red Blood Count 4.28 M/uL Hemoglobin 11.7 g/dL Hematocrit 39.1 % Mean Corpuscular Volume 91.4 fL Mean Corpuscular Hemoglobin 27.3 pg Mean Corpuscular Hemoglobin Concent 29.9 g/dl Platelet Count 214 K/uL Mean Platelet Volume 10.9 fL Neutrophils (%) (Auto) 70.5 % Lymphocytes (%) (Auto) 15.5 % Monocytes (%) (Auto) 9.9 % Eosinophils (%) (Auto) 3.7 % Basophils (%) (Auto) 0.2 % Neutrophils # (Auto) 8.80 K/uL Lymphocytes # (Auto) 1.94 K/uL Monocytes # (Auto) 1.24 K/uL Eosinophils # (Auto) 0.46 K/uL Basophils # (Auto) 0.03 K/uL RDW Standard Deviation 59.4 fL RDW Coefficient of Variation 17.7 % Immature Granulocyte % (Auto) 0.2 % Immature Granulocyte # (Auto) 0.03 K/uL Sodium Level 141 mmol/L Potassium Level 4.1 mmol/L Chloride Level 98 mmol/L Carbon Dioxide Level 37 mmol/L Anion Gap 6.0 mmol/L Blood Urea Nitrogen 37 mg/dl Creatinine 1.30 mg/dl Est Creatinine Clear Calc Drug Dose 34.3 ml/min Estimated GFR () 43.0 Estimated GFR (Non- 37.1 BUN/Creatinine Ratio 28.8 Random Glucose 94 mg/dl Calcium Level 8.4 mg/dl Assessment and Plan 86 yo female with left hip wound ongoing for 3 months, previously from evacuation of left hip hematoma after was diagnosed with DVT and placed on coumadin in july 2016. worsening left hip wound with enterococcus on cx from debridement on 10/08 wound vac over weekend no new changes 10/18 - Left hip wound - outpatient culture grew VRE, infectious disease recommends Daptomycin IV daily wound care recommending an irrigating wound vac x 72 hours which will be complete after weekend PICC line placed Wound continues to looks good but vac apparatus is in place Diastolic CHF - Cr has been up and down, reduce lasix to daily 10/16 resulted with favorable Cr change CKD stage III - stable Parkinsons, no worsening of symptoms on sinemet and requip DVT ppx with heparin SC, recent DVT 07/30 with [address]C filter in [address] Continued [facility] stay due to: other (wound vac in place, IV abx.) Discharge planning: assisted facility (in [place])
[2016-10-17] MEDS: EZETIMIBE 10MG TAB PO SCH (08:44)
[2016-10-17] MEDS: CARBIDOPA/LEVODOPA 25/100MG TAB PO SCH (08:44)
[2016-10-17] MEDS: METOPROLOL SUCC 25MG EXT REL TAB PO SCH (08:44)
[2016-10-17] MEDS: PANTOprazole SOD 40 MG TAB PO SCH (08:44)
[2016-10-17] MEDS: FUROSEMIDE 80 MG TAB PO SCH (08:44)
[2016-10-17] MEDS: SERTRALINE HCL 100 MG TAB PO SCH (08:45)
[2016-10-17] MEDS: ROPINIROLE HCL 1 MG TAB PO SCH ×3 (08:45→20:33)
[2016-10-17] MEDS: DAPTOmycin IV 500 MG in SODIUM CHLORIDE 0.9% 50ML 50 ML IV SCH (13:43)
[2016-10-17] MEDS: OXYCODONE/ACETAMINOPHEN 5-325 TAB PO PRN ×2 (15:34→23:53)
[2016-10-17] MEDS: SIMVASTATIN 40 MG TAB PO SCH (20:34)
[2016-10-18] VITALS (9 sets, daily range): BP systolic 94–127; BP diastolic 66–74; PULSE 72–99; TEMP 36.6–36.7; O2SAT 92–99
[2016-10-18] MEDS: HEPARIN SOD 5000 UNIT/0.5 ML CARP SQ SCH ×3 (06:00→20:37)
[2016-10-18 06:13] LABS: BASO % 0.4 %; BASO ABS # 0.04 K/uL (0-0.2); COMPLETE YES; EOS % 4.3 %; HEMATOCRIT 38.7 % (37-47); IG% 0.4 %; MEAN CELL VOLUME 89.6 fL (80-100); MEAN CORPUSCULAR HEMOGLOBIN 26.4 pg (25-34); MEAN CORPUSCULAR HGB CONC 29.5 g/dl (32-36); MEAN PLATELET VOLUME 11.2 fL (7.4-10.4); MONO % 10.9 %; PLATELET COUNT 235 K/uL (130-400); RED BLOOD COUNT 4.32 M/uL (4.2-5.4); WHITE BLOOD COUNT 11.34 K/uL (4.8-10.8)
[2016-10-18 06:30] LABS: BUN/CREATININE RATIO 23.5 (10-20); CALCIUM 8.7 mg/dl (8.5-10.1); CREATININE 1.5 mg/dl (0.60-1.20); POTASSIUM 4.1 mmol/L (3.5-5.1)
[2016-10-18] MEDS ORDERED: MICONAZOLE NITRATE POWDER 43 GM EXT PRN (07:15)
[2016-10-18] MEDS: ALBUT/IPRATROP 3MG/0.5MG NEB 3 ML VIAL INH SCH ×4 (07:15→19:04)
[2016-10-18] MEDS ORDERED: NURSING DECISION MEDICATION ORDER SCH (07:15)
[2016-10-18] MEDS: EZETIMIBE 10MG TAB PO SCH (08:11)
[2016-10-18] MEDS: METOPROLOL SUCC 25MG EXT REL TAB PO SCH (08:11)
[2016-10-18] MEDS: CARBIDOPA/LEVODOPA 25/100MG TAB PO SCH (08:11)
[2016-10-18] MEDS: ROPINIROLE HCL 1 MG TAB PO SCH ×3 (08:12→20:37)
[2016-10-18] MEDS: SERTRALINE HCL 100 MG TAB PO SCH (08:12)
[2016-10-18] MEDS: FUROSEMIDE 80 MG TAB PO SCH (08:12)
[2016-10-18] MEDS: PANTOprazole SOD 40 MG TAB PO SCH (08:12)
[2016-10-18] MEDS: DAPTOmycin IV 500 MG in SODIUM CHLORIDE 0.9% 50ML 50 ML IV SCH (13:48)
--- NOTE | 2016-10-18 17:14 | Progress Note ---
Subjective Date of Service: Oct 18, 2016. Subjective pt complains of pain distal to the wound vac site and some swelling and firmness , will have wound vac re evaluated by wound provider, no fevers pain is dull, 4/10 worse with exam and movement of leg. family at bedside and updated Review of Systems Constitutional: + weakness, + fatigue, No fever, No chills Respiratory: + dyspnea on exertion, No cough, No shortness of breath Cardiac: + edema, No chest pain, No orthopnea Abdomen: No pain, No nausea, No vomiting, No diarrhea Musculoskeletal: + joint pain, + muscle pain, + swelling Female : No dysuria, No urinary frequency Neurologic: + weakness, + balance problems, No memory loss Psychiatric: + depression symptoms, No anhedonism Objective Vital Signs Date Time Temp Pulse Resp B/P (MAP) Pulse Ox O2 Delivery O2 Flow Rate FiO2 10/18/16 15:41 81 12 96 Nasal Cannula 2.0 10/18/16 15:30 Nasal Cannula 3.0 10/18/16 15:28 36.7 73 20 101/71 (81) 97 2.0 10/18/16 11:39 76 12 97 Nasal Cannula 2.0 10/18/16 09:06 99 116/74 (88) 10/18/16 08:20 Nasal Cannula 3.0 10/18/16 07:36 36.7 72 16 94/66 (75) 99 Nasal Cannula 2.0 10/18/16 07:15 74 12 97 Nasal Cannula 2.0 10/18/16 00:02 36.6 73 20 127/71 (89) 97 Nasal Cannula 2.0 10/18/16 00:00 Nasal Cannula 3.0 10/17/16 20:21 64 20 97 Nasal Cannula 2.0 10/17/16 20:00 Nasal Cannula 3.0 Physical Exam General Appearance: + mild distress, + obese Neck: supple, no JVD Respiratory/Chest: chest non-tender, lungs clear, normal breath sounds, no accessory muscle use Cardiovascular: + systolic murmur Abdomen: normal bowel sounds, non tender, soft, + pertinent finding (just distal to wound a firm area and accoding to patient just proximal to knee, anterior thigh painful today, no fluctuance or warmth) Laboratory Results Last 24 Hours Test 10/18/16 05:35 White Blood Count 11.34 K/uL Red Blood Count 4.32 M/uL Hemoglobin 11.4 g/dL Hematocrit 38.7 % Mean Corpuscular Volume 89.6 fL Mean Corpuscular Hemoglobin 26.4 pg Mean Corpuscular Hemoglobin Concent 29.5 g/dl Platelet Count 235 K/uL Mean Platelet Volume 11.2 fL Neutrophils (%) (Auto) 62.0 % Lymphocytes (%) (Auto) 22.0 % Monocytes (%) (Auto) 10.9 % Eosinophils (%) (Auto) 4.3 % Basophils (%) (Auto) 0.4 % Neutrophils # (Auto) 7.03 K/uL Lymphocytes # (Auto) 2.50 K/uL Monocytes # (Auto) 1.24 K/uL Eosinophils # (Auto) 0.49 K/uL Basophils # (Auto) 0.04 K/uL RDW Standard Deviation 58.6 fL RDW Coefficient of Variation 17.5 % Immature Granulocyte % (Auto) 0.4 % Immature Granulocyte # (Auto) 0.04 K/uL Sodium Level 142 mmol/L Potassium Level 4.1 mmol/L Chloride Level 100 mmol/L Carbon Dioxide Level 37 mmol/L Anion Gap 5.0 mmol/L Blood Urea Nitrogen 35 mg/dl Creatinine 1.50 mg/dl Est Creatinine Clear Calc Drug Dose 29.7 ml/min Estimated GFR () 36.2 Estimated GFR (Non- 31.2 BUN/Creatinine Ratio 23.5 Random Glucose 84 mg/dl Calcium Level 8.7 mg/dl Assessment and Plan 86 yo female with left hip wound ongoing for 3 months, previously from evacuation of left hip hematoma after was diagnosed with DVT and placed on coumadin in july 2016. worsening left hip wound with enterococcus on cx from debridement on 10/08 wound vac over weekend Pt complains of some new painful areas as described, Pending CT thigh and re evaluation but wound care - Left hip wound - outpatient culture grew VRE, infectious disease recommends Daptomycin IV daily PICC line placed vac apparatus is in place Diastolic CHF - Cr has been up and down, reduced lasix to daily 6/3follow volume status and Cr CKD stage III - stable Parkinsons,treatment continues with sinemet and requip DVT ppx with heparin SC, recent DVT 07/30 with [address] filter in [address] Continued [facility] stay due to: other (wound vac in place, IV abx.) Discharge planning: fdc facility (in [place])
--- NOTE | 2016-10-18 18:53 | DIAGNOSTIC IMAGING REPORT ---
CT OF THE LEFT THIGH INFECTION CT DOSE: 1213.60 mGy.cm HISTORY: Cellulitis left thigh eval for abscess or fluid collection distal to wound TECHNIQUE: Multiaxial CT images of the left thigh were performed and reformatted in the sagittal and coronal plane without the use of contrast. COMPARISON: None. FINDINGS: There are findings of a diffuse infiltrative process involving the subcutaneous fat of the left thigh extending from the level of the mid left iliac wing inferiorly to the level of the left knee. Moderate infiltrative changes present. There is a ulceration at the lateral aspect of the mid thigh. Soft tissue air is identified within the deep subcutaneous fat regions. Possibility of necrotizing fasciitis is considered. No evidence for a drainable abscess or collection. No evidence for significant muscular involvement. Osseous structures show no evidence for a lytic or blastic process. There are no destructive bony changes. IMPRESSION: 1. Diffuse cellulitis extending the length of the left thigh laterally. 2. Soft tissue and/or superficial wound of the mid aspect of the left thigh with associated packing material 3. Small air component at the deep aspect of the cellulitis process of the subcutaneous fat extending from the level of the mid hip level to a position several centimeters superior to the left knee. 4. This makes the possibility of necrotizing fasciitis is a diagnostic possibility. 5. No evidence for drainable abscess or collection. 6. No evidence for muscular or bony involvement. Electronically signed by: Sony Carballo M.D. 10/18/2016 6:52 PM Dictated Date/Time: 10/18/2016 6:43 PM
--- NOTE | 2016-10-18 19:42 | Discharge Instructions ---
Discharge Instructions Date of Service Oct 18, 2016. Admission Reason for Admission: Unspecified Open Wound, Left Hip, Sequela Discharge Discharge Diagnosis / Problem: Necrotozing fascitis Discharge Goals Goal(s): Decrease discomfort, Improve function Activity Recommendations Activity Limitations: per Instructions/Follow-up section . Instructions / Follow-Up Instructions / Follow-Up Pt is a 86 yo female with hx of Afib, diastolic CHF, DVT. CKD, GERD, parkinson' s who was initially diagnosed with a DVT in july and was placed on coumadin. Pt's daughter reports INR became elevated in and developed a hematoma in the left thigh. She was evaluated by Dr Roman at [facility] where hematoma was evacuated. She was subsequently following up with wound care and was placed on a wound vac. Per daughter, there was some disagreement with the care in relation to the dressings used and arrangements were made to continue care at wound care center here in [place]. Pt saw wound care initially on 10/08 in which wound was debrided and cx. Pt subsequently followed up with Dr. Abbott on 10/14 in which it was determined that enterococcus was cultured out. Pt was also seen by Dr Frazier (plastic surgery) in which further surgical intervention was not suggested. Pt was admitted to [facility] as a direct admit for IV antibiotics and for possible irrigating wound vac placement. Pt denies any fevers, chills, N/V/D, abd pain, chest pain or shortness of breath. Pt does report seeping yellowish, sometimes red drainage from wound site. Pt no longer taking coumadin and has had a IVC filter placed. - Left hip wound - outpatient culture grew VRE, infectious disease recommends Daptomycin IV daily wound care recommended an irrigating wound vac . Today she had complained about worsening pain in the lower extremity with some swelling and firmness and CT LE was ordered. no fevers pain is dull, 4/10 worse with exam and movement of leg. Ct lower extemity: 1. Diffuse cellulitis extending the length of the left thigh laterally. 2. Soft tissue and/or superficial wound of the mid aspect of the left thigh with associated packing material 3. Small air component at the deep aspect of the cellulitis process of the subcutaneous fat extending from the level of the mid hip level to a position several centimeters superior to the left knee. 4. This makes the possibility of necrotizing fasciitis is a diagnostic possibility. 5. No evidence for drainable abscess or collection. 6. No evidence for muscular or bony involvement. transfer to acute care facility Diastolic CHF - euvolemic, no exacerbation, will cont lasix and metoprolol CKD stage III - stable, continue Lasix as prescribed Recent DVT in july with IVC filter in place, no longer on coumadin Parkinsons, stable, cont sinemet and requip Current Hospital Diet Patient's current hospital diet: Regular Diet Discharge Diet Recommended Diet: Regular Diet Pending Studies Studies pending at discharge: no Medical Emergencies . Who to Call and When: Medical Emergencies: If at any time you feel your situation is an emergency, please call 911 immediately. . Non-Emergent Contact Non-Emergency issues call your: Primary Care Provider . . "Provider Documentation" section prepared by Flori Andrews. . VTE Core Measure Inpt VTE Proph given/why not?: Unfractionated heparin SQ
[2016-10-18] MEDS: SIMVASTATIN 40 MG TAB PO SCH (20:37)
[2016-10-19 00:12] VITALS: BP 104/69; PULSE 88; TEMP 36.7; O2SAT 96
--- NOTE | 2016-10-19 05:37 | Progress Note ---
Progress Note Date of Service Oct 19, 2016. Progress Note Was called by RN about CT lower extremity report concerning for necrotizing fasciitis from left hip to knee. CT report: 1. Diffuse cellulitis extending the length of the left thigh laterally. 2. Soft tissue and/or superficial wound of the mid aspect of the left thigh with associated packing material 3. Small air component at the deep aspect of the cellulitis process of the subcutaneous fat extending from the level of the mid hip level to a position several centimeters superior to the left knee. 4. This makes the possibility of necrotizing fasciitis is a diagnostic possibility. 5. No evidence for drainable abscess or collection. 6. No evidence for muscular or bony involvement. Contacted Gen. surgery and orthopedics and was advised to initiate transfer to tertiary care center. Dr. Burnette contacted Gen. surgery at [facility] who accepted the patient. The patient and family were notified of the transfer. Resident Tracking Resident Involvement: Basic Acoustic Analyst Coverage Note Care Provided: Adult Hospital Medicine
--- NOTE | 2016-10-26 09:39 | Discharge Summary ---
Discharge Summary Date of Service Oct 26, 2016. Discharge Summary Admission Date: Oct 14, 2016 at 10:57 Discharge Date: Oct 18, 2016 Discharge Disposition: Acute care facility Principal Diagnosis: nectroizing fascitis Medication Reconciliation Continued Medications: Acetaminophen (Tylenol) 325 Mg Tab 650 MG PO q4hrs, TAB Carbidopa/Levodopa (Sinemet 25MG/100MG) Tab 1 TAB PO DAILY, TAB Ezetimibe (Zetia) 10 Mg Tab 10 MG PO DAILY, TAB Furosemide (Lasix) 80 Mg Tab 80 MG PO BID, TAB Ipratropium-Albuterol (Duoneb) 3 Ml Nebu 1 TREATMENT INH Q4H, INHA Lorazepam (Ativan) 1 Mg Tab 1 MG PO TID, TAB Metoprolol Succ (Toprol Xl) (Toprol-Xl) 25 Mg Tabcr 25 MG PO DAILY, #30 TAB Omeprazole (Prilosec) 20 Mg Capcr 20 MG PO DAILY, CAP Ondansetron Hcl (Zofran) 4 Mg Tab 4 MG PO q4hrs PRN for Nausea, TAB Oxycodone/Acetaminophen 5MG/325MG (Percocet 5MG/325MG) Tab 1 TABLET PO Q4H PRN for Pain, TAB PAIN Polyethylene Glycol 3350 (Miralax) 1 Pow Pow 17 GM PO DAILY PRN for Constipation, #527 GM Ropinirole (Requip) 1 Mg Tab 2 MG PO TID, TAB Sertraline (Zoloft) 100 Mg Tab 1 TAB PO DAILY for 90 Days, #90 TAB 1 Refill Simvastatin (Zocor) 40 Mg Tab 40 MG PO QPM, TAB Discharge Exam transferring physician did exam Hospital Course 86 yo female with left hip wound ongoing for 3 months, previously from evacuation of left hip hematoma after was diagnosed with DVT and placed on coumadin in july 2016. worsening left hip wound with enterococcus on cx from debridement on 10/08 wound vac over weekend Pt complains of some new painful areas as described, CT thigh concerning for necrotizing fascitis, ortho recommends transfer and pt accepted by [facility], - Left hip wound - outpatient culture grew VRE, infectious disease recommended Daptomycin IV daily PICC line placed vac apparatus was in place Diastolic CHF - Cr has been up and down, reduced lasix to daily 6/3follow volume status and Cr CKD stage III - stable Parkinsons,treatment continues with sinemet and requip DVT ppx with heparin SC, recent DVT 07/30 with IVC filter in place eventual disposition will be determined by [facility] this summary was completed after pt left and transfer was arranged by Dr Andrews Total Time Spent: Less than 30 minutes This includes examination of the patient, discharge planning, medication reconciliation, and communication with other providers. Discharge Instructions Please refer to the electronic Patient Visit Report (Discharge Instructions) for additional information.
== END 2016-10-19 02:00 | disposition short-term general hospital (02) | DRG 919 ==
LOC: C.MS4W 10:57 → C.4E 11:37
PROVIDERS: ADMIT Hospitalist; ATTEND Internal Medicine
PROC: 02HV33Z Insertion of Infusion Device into Superior Vena Cava, Percutaneous Approach (ICD-10-PCS; principal; 2016-10-16)
DX: L76.82 Other postprocedural complications of skin and subcutaneous tissue (principal); M72.6 Necrotizing fasciitis; I50.30 Unspecified diastolic (congestive) heart failure; S71.002A Unspecified open wound, left hip, initial encounter; I48.91 Unspecified atrial fibrillation; Z86.718 Personal history of other venous thrombosis and embolism; N18.3 Chronic kidney disease, stage 3 (moderate); K21.9 Gastro-esophageal reflux disease without esophagitis; Z79.01 Long term (current) use of anticoagulants; G20 Parkinson's disease; Z87.891 Personal history of nicotine dependence; E78.5 Hyperlipidemia, unspecified; B95.2 Enterococcus as the cause of diseases classified elsewhere; Y84.8 Other medical procedures as the cause of abnormal reaction of the patient, or of later complication, without mention of misadventure at the time of the procedure; Y92.009 Unspecified place in unspecified non-institutional (private) residence as the place of occurrence of the external cause; T81.89XA Other complications of procedures, not elsewhere classified, initial encounter; Y83.8 Other surgical procedures as the cause of abnormal reaction of the patient, or of later complication, without mention of misadventure at the time of the procedure; E66.01 Morbid (severe) obesity due to excess calories; F32.9 Major depressive disorder, single episode, unspecified; Z90.49 Acquired absence of other specified parts of digestive tract

== ENCOUNTER 2016-11-16 13:38 | Inpatient (IN) | payer OTHER ==
[~2016-11-16] VITALS: Ht 152.4 cm; Wt 117.7 kg
[2016-11-16 13:47] VITALS: Ht 152.4 cm; Wt 117.7 kg
[2016-11-16] MEDS ORDERED: ATOR-22 PO (14:07)
[2016-11-16] MEDS ORDERED: OXYC1CAP5 PO (14:07)
[2016-11-16] MEDS ORDERED: SULF800T23 PO (14:07)
[2016-11-16] MEDS ORDERED: DOCU100C31 PO (14:07)
[2016-11-16] MEDS ORDERED: PROB1CAP54 PO (14:07)
[2016-11-16] MEDS ORDERED: SENN1TAB65 PO (14:07)
[2016-11-16] MEDS ORDERED: MULT-16 PO (14:07)
[2016-11-16] MEDS ORDERED: DAPTOmycin IV 600 MG in SODIUM CHLORIDE 0.9% 50ML 50 ML IV STA (14:20)
--- NOTE | 2016-11-16 14:39 | DIAGNOSTIC IMAGING REPORT ---
SINGLE VIEW CHEST CLINICAL HISTORY: Sepsis. FINDINGS: An AP, portable, upright chest radiograph is compared to study dated 10/16/2016. The examination is degraded by portable technique, large body habitus, and patient rotation. The heart is enlarged and there is atherosclerotic calcification of the thoracic aorta. There is pulmonary vascular congestion. Airspace opacities are seen at the left lung base. Small pleural effusions are identified. No pneumothorax is seen. The skeletal structures are osteopenic. The bony thorax is grossly intact. IMPRESSION: 1. Cardiomegaly with evidence of congestive failure. 2. Small pleural effusions. 3. Airspace opacities are identified at the left lung base. This could represent atelectasis versus developing pneumonia. Clinical correlation will be required. Electronically signed by: Johnny Vázquez M.D. 11/16/2016 2:38 PM Dictated Date/Time: 11/16/2016 2:37 PM
[2016-11-16 15:58] LABS: INR 1.2 (0.9-1.1); PARTIAL THROMBOPLASTIN RATIO 1.3; PROTHROMBIN TIME (PATIENT) 12.5 SECONDS (9.0-12.0)
[2016-11-16 16:06] LABS: HEMATOCRIT 37.7 % (37-47); MEAN CELL VOLUME 83.6 fL (80-100); MEAN CORPUSCULAR HEMOGLOBIN 25.5 pg (25-34); MEAN CORPUSCULAR HGB CONC 30.5 g/dl (32-36); MEAN PLATELET VOLUME 10.6 fL (7.4-10.4); PLATELET COUNT 284 K/uL (130-400); RED BLOOD COUNT 4.51 M/uL (4.2-5.4); WHITE BLOOD COUNT 30.99 K/uL (4.8-10.8)
[2016-11-16 16:07] LABS: BUN/CREATININE RATIO 30.3 (10-20); CALCIUM 9.7 mg/dl (8.5-10.1); CREATININE 1.8 mg/dl (0.60-1.20); POTASSIUM 4.2 mmol/L (3.5-5.1)
[2016-11-16 16:10] LABS: ALB/GLOB RATIO 0.5 (0.9-2)
[2016-11-16] MEDS ORDERED: ACETAMINOPHEN 325 MG TAB PO PRN (16:15)
[2016-11-16] MEDS ORDERED: ALUMINUM/MAGNESIUM/SIMETH (MAALOX MAX) 30 ML UDC PO PRN (16:15)
[2016-11-16] MEDS ORDERED: MAGNESIUM HYDROXIDE SUSP 30 ML UDC PO PRN (16:15)
[2016-11-16] MEDS ORDERED: POLYETHYLENE (MIRALAX) 17 GM PACK PO PRN (16:15)
[2016-11-16] MEDS ORDERED: ONDANSETRON INJ 2 MG/ML 2 ML VIAL IV PRN (16:15)
[2016-11-16 16:26] LABS: BASO % 0.1 %; BASO ABS # 0.03 K/uL (0-0.2); COMPLETE YES; EOS % 0.4 %; IG% 0.6 %; LYMPH % 6.9 %; LYMPH ABS # 2.14 K/uL (1.2-3.4); MONO % 5.8 %; NEUT % 86.2 %
[2016-11-16] MEDS ORDERED: SPIR25TA PO (16:33)
[2016-11-16] MEDS ORDERED: TRAM-10 PO (16:33)
[2016-11-16 16:56] VITALS: BP 116/66; PULSE 76; TEMP 36.9; O2SAT 98
--- NOTE | 2016-11-16 17:08 | EMERGENCY ROOM VISIT NOTE ---
History Report prepared by Ambar: Elvis Marvin Under the Supervision of: Dr. Gilles Le M.D. First contact with patient: 14:13 Chief Complaint: WOUND INFECTION Stated Complaint: CELLULITIS Nursing Triage Summary: Patient with wound to left lateral thigh, wound vac in place. She was transferred to [facility] approximately 2 weeks ago after evaluation at [facility] for ? necrotizing fascitits. Wound found to have VRE. Patient was then d/c to [facility]. Presents to [facility] this date as a transfer from [facility] ED for red warm left lower extremity, extending medially to left calf, where it becomes circumfrential. Warmth and errythemia noted. Wound vac in place to left lateral thigh. Patinet started on levaquin last PM, switched to bactrim this AM. History of Present Illness The patient is an 86 year old female who presents to the Emergency Room with complaints of worsening left leg cellulitis that started yesterday. The patient developed a left leg infection last month and was admitted here for necrotizing fasciitis. She was then transferred to [facility], where she had her leg drained and cleaned out. She had a wound vac on her upper left leg, which has been getting better. The wound was found to have VRE. The patient was there for a week before going to [facility] for 16 days. She then went back to [facility] 5 days ago, per the patient's daughter. The patient had been doing fine until yesterday, when she was noticed to be very lethargic and running a low grade fever. The patient's lower left leg was red and warm to the touch, and has been working its' way up the leg. The patient says that her left leg is painful to the touch. She was started on Levaquin yesterday, and was switched to Bactrim this morning, per the nursing staff. Per the patient's daughter, the patient is not on Coumadin anymore, and is not supposed to be on any blood thinners. Source of History: patient, family (daughter) Onset: Yesterday Position: leg (left) Quality: other (cellulitis - red and warm to touch - painful to touch) Timing: worsening Associated Symptoms: + fevers (yesterday low grade) Note: Associated symptoms: Lethargy starting yesterday. Review of Systems See HPI for pertinent positives & negatives. A total of 10 systems reviewed and were otherwise negative. Past Medical & Surgical Medical Problems: (1) Cellulitis (2) HTN (hypertension) (3) Unspecified open wound, left hip, sequela Family History Family history omitted secondary to patient's advanced age. Social History Smoking Status: Former Smoker Drug Use: none Marital Status: Housing Status: retirement Occupation Status: retired Current/Historical Medications Scheduled Acetaminophen (Tylenol), 650 MG PO q4hrs Atorvastatin (Lipitor), 20 MG PO DAILY Carbidopa/Levodopa (Sinemet 25MG/100MG), 1 TAB PO DAILY Docusate Sodium (Docusate Sodium), 100 MG PO BID Ezetimibe (Zetia), 10 MG PO DAILY Furosemide (Lasix), 80 MG PO BID Lorazepam (Ativan), 0.5 MG PO TID Metoprolol Succ (Toprol Xl) (Toprol-Xl), 25 MG PO DAILY Multiple Vitamins W/ Minerals (Thera-M), 1 TAB PO DAILY Omeprazole (Prilosec), 20 MG PO DAILY Probiotic Product (Acidophilus), 1 CAP PO DAILY Ropinirole (Requip), 2 MG PO TID Sennosides-Docusate Sodium (Senna Plus), 1 TAB PO DAILY Sertraline (Zoloft), 1 TAB PO DAILY Spironolactone (Aldactone), 25 MG PO DAILY Sulfa/Trimethoprim (Bactrim Ds 800MG/160MG), 1 TAB PO BID Scheduled PRN Ondansetron Hcl (Zofran), 4 MG PO q4hrs PRN for Nausea Oxycodone Hcl (Oxycodone Hcl), 5 MG PO Q4 PRN for Pain Polyethylene Glycol 3350 (Miralax), 17 GM PO DAILY PRN for Constipation Tramadol (Ultram), 1 TAB PO TID PRN for Pain Allergies Coded Allergies: Ciprofloxacin (Unverified Allergy, Intermediate, RASH, 10/08/16) Physical Exam Vital Signs Date Time Temp Pulse Resp B/P (MAP) Pulse Ox O2 Delivery O2 Flow Rate FiO2 11/16/16 16:00 76 16 116/66 98 11/16/16 14:23 95 Room Air 11/16/16 13:47 36.9 84 14 120/56 94 Nasal Cannula 2.0 Physical Exam Constitutional: Vital signs reviewed. Eyes: Pupils are equal round reactive to light. Conjunctiva are noninjected. ENT: Pharynx is clear without erythema or exudate. Mucous membranes are moist. Neck supple without meningeal signs. Respiratory: Clear to auscultation bilaterally. Breath sounds are equal bilaterally. Cardiovascular: Regular rate and rhythm. No rubs or gallops. GI: Soft, nondistended and nontender. Bowel sounds are present. Musculoskeletal: Diffuse cellulitis from mid-thigh down to ankle. Wound vac in lateral right thigh. No cellulitis to groin, no crepitus. No lower extremity tenderness. Integumentary: No cyanosis. Neurological: The patient is awake and alert. No focal deficits. Psychiatric: Normal affect. Medical Decision & Procedures ER Provider Diagnostic Interpretation: X-ray results as stated below per interpretation by me and the radiologist: SINGLE VIEW CHEST CLINICAL HISTORY: Sepsis. FINDINGS: An AP, portable, upright chest radiograph is compared to study dated 10/16/2016. The examination is degraded by portable technique, large body habitus, and patient rotation. The heart is enlarged and there is atherosclerotic calcification of the thoracic aorta. There is pulmonary vascular congestion. Airspace opacities are seen at the left lung base. Small pleural effusions are identified. No pneumothorax is seen. The skeletal structures are osteopenic. The bony thorax is grossly intact. IMPRESSION: 1. Cardiomegaly with evidence of congestive failure. 2. Small pleural effusions. 3. Airspace opacities are identified at the left lung base. This could represent atelectasis versus developing pneumonia. Clinical correlation will be required. Electronically signed by: Johnny Vázquez M.D. 11/16/2016 2:38 PM Dictated Date/Time: 11/16/2016 2:37 PM Laboratory Results 11/16/16 15:15 Red Blood Count 4.51, Mean Corpuscular Volume 83.6, Mean Corpuscular Hemoglobin 25.5, Mean Corpuscular Hemoglobin Concent 30.5, Mean Platelet Volume 10.6, Neutrophils (%) (Auto) 86.2, Lymphocytes (%) (Auto) 6.9, Monocytes (%) (Auto) 5.8, Eosinophils (%) (Auto) 0.4, Basophils (%) (Auto) 0.1, Neutrophils # (Auto) 26.73, Lymphocytes # (Auto) 2.14, Monocytes # (Auto) 1.79, Eosinophils # (Auto) 0.12, Basophils # (Auto) 0.03 11/16/16 15:15 Test 11/16/16 15:15 11/16/16 15:21 White Blood Count 30.99 K/uL (4.8-10.8) Red Blood Count 4.51 M/uL (4.2-5.4) Hemoglobin 11.5 g/dL (12.0-16.0) Hematocrit 37.7 % (37-47) Mean Corpuscular Volume 83.6 fL (80-100) Mean Corpuscular Hemoglobin 25.5 pg (25-34) Mean Corpuscular Hemoglobin Concent 30.5 g/dl (32-36) Platelet Count 284 K/uL (130-400) Mean Platelet Volume 10.6 fL (7.4-10.4) Neutrophils (%) (Auto) 86.2 % Lymphocytes (%) (Auto) 6.9 % Monocytes (%) (Auto) 5.8 % Eosinophils (%) (Auto) 0.4 % Basophils (%) (Auto) 0.1 % Neutrophils # (Auto) 26.73 K/uL (1.4-6.5) Lymphocytes # (Auto) 2.14 K/uL (1.2-3.4) Monocytes # (Auto) 1.79 K/uL (0.11-0.59) Eosinophils # (Auto) 0.12 K/uL (0-0.5) Basophils # (Auto) 0.03 K/uL (0-0.2) RDW Standard Deviation 51.6 fL (36.4-46.3) RDW Coefficient of Variation 16.8 % (11.5-14.5) Immature Granulocyte % (Auto) 0.6 % Immature Granulocyte # (Auto) 0.18 K/uL (0.00-0.02) Red Blood Cell Morphology Unremarkable Prothrombin Time 12.5 SECONDS (9.0-12.0) Prothromb Time International Ratio 1.2 (0.9-1.1) Activated Partial Thromboplast Time 32.7 SECONDS (21.0-31.0) Partial Thromboplastin Ratio 1.3 Anion Gap 8.0 mmol/L (3-11) Est Creatinine Clear Calc Drug Dose 26.3 ml/min Estimated GFR () 29.0 Estimated GFR (Non- 25.0 BUN/Creatinine Ratio 30.3 (10-20) Calcium Level 9.7 mg/dl (8.5-10.1) Total Bilirubin 0.7 mg/dl (0.2-1) Aspartate Amino Transf (AST/SGOT) 21 U/L (15-37) Alanine Aminotransferase (ALT/SGPT) 12 U/L (12-78) Alkaline Phosphatase 90 U/L (45-117) Total Protein 8.0 gm/dl (6.4-8.2) Albumin 2.5 gm/dl (3.4-5.0) Globulin 5.5 gm/dl (2.5-4.0) Albumin/Globulin Ratio 0.5 (0.9-2) Bedside Lactic Acid Venous 0.72 mmol/L (0.90-1.70) Laboratory results as reviewed by me. Medications Administered Medications (Trade) Dose Ordered Sig/Marisela Route Start Time Stop Time Status Last Admin Dose Admin Daptomycin 600 mg/ Sodium Chloride 62 ml @ 100 mls/hr NOW STAT IV 11/16/16 14:20 11/16/16 14:57 DC 11/16/16 15:22 100 MLS/HR ED Course 1415: The patient was evaluated in room C6. A complete history and physical exam was performed. 1420: Ordered Daptomycin 600 mg/Sodium Chloride 62 ml @ 100 mls/hr IV. 1500: I reevaluated the patient and she is resting. The patient and daughter verbally expressed understanding and agreement of the treatment plan. The patient will be evaluated for further treatment. 1514: I paged Dr. Hogan ([facility] [place] hospitalist). 1519: I discussed the patient with Madeline (PA for Dr. Hogan - [facility] [place] hospitalist) - they will evaluate the patient for further treatment. Medical Decision This is an 86-year-old female who presents with redness to her left leg. Differential diagnosis includes cellulitis, necrotizing fasciitis, VRE, abscess , sepsis. I did perform a limited focused review of portions of the patient's old chart on the electronic medical record. The patient was admitted for necrotizing fasciitis on October 14 and was transferred to [facility]. Blood Pressure Screening: Patient was found to have normal blood pressure on screening and does not require follow-up. Medication Reconciliation: I attest that I have personally reviewed the patient' s current medication list. I did evaluate the patient as noted above. I did order and personally review the patient's chest x-ray as described above. I did order and review the patient's blood work as noted in the electronic medical record. Blood cultures were ordered. I did treat patient with daptomycin IV to cover for VRE. I did discuss case with the hospitalist and case supervisor. Consults Time Called: 1513 Consulting Physician: Madeline (PA for Dr. Samira NOEL hospitalist) Returned Call: 1512 I discussed the patient with Madeline (PA [facility] - they will evaluate the patient for further treatment. Impression Primary Impression: Left leg cellulitis Additional Impressions: Failure of outpatient treatment Leukocytosis History of infection with vancomycin resistant Enterococcus (VRE) Serum creatinine raised Scribe Attestation The scribe's documentation has been prepared under my direct and personally reviewed by me in its entirety. I confirm that the note above accurately reflects all work, treatment, procedures, and medical decision making performed by me. Departure Information Dispostion Being Evaluated By Hospitalist Referrals Roby Saavedra M.D. (PCP) Patient Instructions My [facility] Problem Qualifiers Additional Impressions: Leukocytosis Leukocytosis type: unspecified Qualified Codes: D72.829 - Elevated white blood cell count, unspecified
[2016-11-16 17:32] VITALS: BP 109/67; PULSE 72; TEMP 36.6; O2SAT 94
[2016-11-16] MEDS ORDERED: FUROSEMIDE 80 MG TAB PO SCH (17:45)
--- NOTE | 2016-11-16 17:46 | DIAGNOSTIC IMAGING REPORT ---
LEFT FEMUR 3 VIEWS CLINICAL HISTORY: Left lower extremity cellulitis. FINDINGS: AP, frog-leg, and lateral views of the left femur are correlated with CT scan of the left femur dated 10/18/2016. The skeletal structures are osteopenic. No fracture is seen. No bony erosion or periostitis is identified. Advanced arthritic change is present in the left hip and knee joints. The visualized left hemipelvis appears intact. Mild soft tissue edema is present in the left lower extremity. No subcutaneous gas is identified. Calcified phleboliths are observed in the left hemipelvis. IMPRESSION: 1. No acute bony abnormality is seen in the left femur. 2. Osteopenia and advanced degenerative change as above. 3. Soft tissue edema is noted the left thigh. Electronically signed by: Johnny Vázquez M.D. 11/16/2016 5:45 PM Dictated Date/Time: 11/16/2016 5:43 PM
--- NOTE | 2016-11-16 17:47 | DIAGNOSTIC IMAGING REPORT ---
LEFT TIBIA AND FIBULA 2 VIEWS CLINICAL HISTORY: Left lower extremity cellulitis. FINDINGS: AP and lateral views of the left tibia and fibula are obtained. No prior studies are available for comparison at the time of dictation. The Examination is degraded by suboptimal positioning. The skeletal structures are osteopenic. No fracture is seen. No bony erosion or periostitis is identified. Advanced arthritic change is noted in the knee and ankle joints. Soft tissue edema is present throughout the calf. No subcutaneous gas or radiodense foreign body is identified. IMPRESSION: 1. Osteopenia with no acute bony amount is identified in the left tibia or fibula. 2. Soft tissue edema is present in the calf. Electronically signed by: Johnny Vázquez M.D. 11/16/2016 5:46 PM Dictated Date/Time: 11/16/2016 5:45 PM
[2016-11-16] MEDS: LEVOFLOXACIN / D5W 750 MG in PREMIXED IN D5W 150 ML IV SCH (18:03)
[2016-11-16] MEDS: LACTOBACILLUS ACIDOPHILUS (FLORANEX) TAB PO SCH (18:04)
--- NOTE | 2016-11-16 18:32 | History and Physical ---
History & Physical Date & Time of Service: Nov 16, 2016 at 17:58 Chief Complaint: Cellulitis Primary Care Physician: Roby Saavedra M.D. History of Present Illness Source: patient, family (daughter at bedside), clinic records, hospital records , fdc This is an 86 y/o female with a history of recent DVT July 2016 s/p IVC filter , recent VRE infection, atrial fibrillation, diastolic CHF, CKD III, restless leg syndrome, anxiety and depression who presented to the ED on 11/16 with left lower extremity cellulitis. The patient has a history of RLE DVT in July 2016 for which she was started on warfarin. She then developed a hematoma on her left lateral thigh as result of a supratherapeutic INR. The patient presented to an [facility] one month ago with possible necrotizing fasciitis and was transferred to [facility]. She was found to have VRE. She has a wound vac, and her thigh had been getting better. Today the patient presents from [facility] with erythema, warmth, tenderness, and swelling in her left lower leg. The patient has also been noted to be more lethargic the last few days and has been running low-grade fevers. The patient was started on oral Levaquin yesterday and then switched to Bactrim this morning at [facility]. The patient complains of intermittent fevers and chills as well as intermittent shortness of breath. She is typically on oxygen at baseline. She complains of weakness and fatigue. The patient denies chills, chest pain, palpitations, claudication, cough, wheezing, nausea, vomiting, abdominal pain, dysuria, hematuria, urinary retention, paralysis, numbness and tingling. Past Medical/Surgical History Medical Problems: (1) HTN (hypertension) Status: Chronic Atrial fibrillation Diastolic CHF CKD stage III Restless leg syndrome Anxiety and depression RLE DVT July 2016 s/p IVC filter H/o VRE Family History Breast cancer Diabetes mellitus Multiple myeloma Social History Smoking Status: Former Smoker Smokeless Tobacco Use: No Alcohol Use: none Drug Use: none Marital Status: Housing status: fdc Occupational Status: retired Multi-Drug Resistant Organisms History of MDRO: Yes Type of MDRO: VRE Allergies Coded Allergies: Ciprofloxacin (Unverified Allergy, Intermediate, RASH, 10/08/16) Home Medications Scheduled Acetaminophen (Tylenol), 650 MG PO q4hrs Atorvastatin (Lipitor), 20 MG PO DAILY Carbidopa/Levodopa (Sinemet 25MG/100MG), 1 TAB PO DAILY Docusate Sodium (Docusate Sodium), 100 MG PO BID Ezetimibe (Zetia), 10 MG PO DAILY Furosemide (Lasix), 80 MG PO BID Lorazepam (Ativan), 0.5 MG PO TID Metoprolol Succ (Toprol Xl) (Toprol-Xl), 25 MG PO DAILY Multiple Vitamins W/ Minerals (Thera-M), 1 TAB PO DAILY Omeprazole (Prilosec), 20 MG PO DAILY Probiotic Product (Acidophilus), 1 CAP PO DAILY Ropinirole (Requip), 2 MG PO TID Sennosides-Docusate Sodium (Senna Plus), 1 TAB PO DAILY Sertraline (Zoloft), 1 TAB PO DAILY Spironolactone (Aldactone), 25 MG PO DAILY Sulfa/Trimethoprim (Bactrim Ds 800MG/160MG), 1 TAB PO BID Scheduled PRN Ondansetron Hcl (Zofran), 4 MG PO q4hrs PRN for Nausea Oxycodone Hcl (Oxycodone Hcl), 5 MG PO Q4 PRN for Pain Polyethylene Glycol 3350 (Miralax), 17 GM PO DAILY PRN for Constipation Tramadol (Ultram), 1 TAB PO TID PRN for Pain Review of Systems Constitutional: + fever, + sweats, + weakness, + fatigue, No chills Eyes: No worsening of vision, No eye pain, No diplopia ENT: No hearing loss, No sore throat, No trouble swallowing Respiratory: + shortness of breath (intermittent), No cough, No wheezing Cardiovascular: No chest pain, No claudication, No palpitations Abdomen: No pain, No nausea, No vomiting Musculoskeletal: + swelling (LLE), + problem reported (LLE tender, warm, erythematous), No joint pain, No muscle pain Genitourinary - Female: No dysuria, No urinary retention, No hematuria Neurologic: No paralysis, No weakness, No numbness/tingling Integumentary: + color change (erythema LLE), No rash, No itch Physical Exam Vital Signs Date Time Temp Pulse Resp B/P (MAP) Pulse Ox O2 Delivery O2 Flow Rate FiO2 11/16/16 17:32 36.6 72 20 109/67 (81) 94 2.0 11/16/16 17:19 36.9 84 16 126/74 98 Room Air 2.0 11/16/16 16:56 36.9 76 16 116/66 98 Room Air 2.0 11/16/16 16:00 76 16 116/66 98 11/16/16 14:23 95 Room Air 11/16/16 13:47 36.9 84 14 120/56 94 Nasal Cannula 2.0 General appearance: +Morbidly obese. Well-developed, well-nourished, no apparent distress Head: Normocephalic, atraumatic Eyes: Normal inspection, PERRL, EOMI ENT: Normal ENT inspection, hearing grossly normal, pharynx normal Neck: Supple, no JVD, trachea midline Respiratory/Chest: Lungs clear to auscultation, normal breath sounds, no respiratory distress Cardiovascular: +Irregularly irregular, rate controlled. No gallop, no murmur Abdomen/GI: Normal bowel sounds, non-tender, soft Extremities/Musculoskeletal: +Erythema circumferentially around left ankle and left lower leg, up medial aspect of left thigh. Warm to the touch, tender to palpation. LLE noticeably much larger than RLE, although some of this is chronic per pt. Unable to accurately assess edema as pt very tender. No erythema around wound vac Neurological/Psych: Alert, normal mood/affect, oriented x 3 Skin: +Erythema as noted above. Warm/dry, no rash Diagnostics Laboratory Results Results Past 24 Hours Test 11/16/16 15:15 11/16/16 15:21 Range/Units White Blood Count 30.99 4.8-10.8 K/uL Red Blood Count 4.51 4.2-5.4 M/uL Hemoglobin 11.5 12.0-16.0 g/dL Hematocrit 37.7 37-47 % Mean Corpuscular Volume 83.6 80-100 fL Mean Corpuscular Hemoglobin 25.5 25-34 pg Mean Corpuscular Hemoglobin Concent 30.5 32-36 g/dl Platelet Count 284 130-400 K/uL Mean Platelet Volume 10.6 7.4-10.4 fL Neutrophils (%) (Auto) 86.2 % Lymphocytes (%) (Auto) 6.9 % Monocytes (%) (Auto) 5.8 % Eosinophils (%) (Auto) 0.4 % Basophils (%) (Auto) 0.1 % Neutrophils # (Auto) 26.73 1.4-6.5 K/uL Lymphocytes # (Auto) 2.14 1.2-3.4 K/uL Monocytes # (Auto) 1.79 0.11-0.59 K/uL Eosinophils # (Auto) 0.12 0-0.5 K/uL Basophils # (Auto) 0.03 0-0.2 K/uL RDW Standard Deviation 51.6 36.4-46.3 fL RDW Coefficient of Variation 16.8 11.5-14.5 % Immature Granulocyte % (Auto) 0.6 % Immature Granulocyte # (Auto) 0.18 0.00-0.02 K/uL Red Blood Cell Morphology Unremarkable Prothrombin Time 12.5 9.0-12.0 SECONDS Prothromb Time International Ratio 1.2 0.9-1.1 Activated Partial Thromboplast Time 32.7 21.0-31.0 SECONDS Partial Thromboplastin Ratio 1.3 Sodium Level 136 136-145 mmol/L Potassium Level 4.2 3.5-5.1 mmol/L Chloride Level 91 98-107 mmol/L Carbon Dioxide Level 37 21-32 mmol/L Anion Gap 8.0 3-11 mmol/L Blood Urea Nitrogen 55 7-18 mg/dl Creatinine 1.80 0.60-1.20 mg/dl Est Creatinine Clear Calc Drug Dose 26.3 ml/min Estimated GFR () 29.0 Estimated GFR (Non- 25.0 BUN/Creatinine Ratio 30.3 10-20 Random Glucose 88 70-99 mg/dl Calcium Level 9.7 8.5-10.1 mg/dl Total Bilirubin 0.7 0.2-1 mg/dl Aspartate Amino Transf (AST/SGOT) 21 15-37 U/L Alanine Aminotransferase (ALT/SGPT) 12 12-78 U/L Alkaline Phosphatase 90 45-117 U/L Total Protein 8.0 6.4-8.2 gm/dl Albumin 2.5 3.4-5.0 gm/dl Globulin 5.5 2.5-4.0 gm/dl Albumin/Globulin Ratio 0.5 0.9-2 Bedside Lactic Acid Venous 0.72 0.90-1.70 mmol/L Microbiology Results 11/16/16 Blood Culture, Received Pending 11/16/16 Blood Culture, Received Pending Diagnostic Radiology Reviewed the following studies and agree with interpretation as follows: Patient Name: WAYLON WILL Unit Number: [id number] Dictated: 11/16/161436 Transcribed: 11/16/161436 EV Printed Date/Time: [~ rep prt dt]/[~ rep prt tm] [~ rep ct labl] - [~ rep ct ivnm] [facility] [place] [address] Dictated: 11/16/161436 Transcribed: 11/16/161436 EV Printed Date/Time: [~ rep prt dt]/[~ rep prt tm] [~ rep ct labl] - [~ rep ct ivnm] Patient: WAYLON WILL Address1: [address] [place] [address] Rec: [id number] Address2: Acct ID: [id number] [facility] Zip: [place] [address] Date: 1930 Sex: F Room/Bed: Ref Phy: Roby Saavedra M.D. SC: ANITA Att Phy: Report #: [id number] Rosemarie Phy: Roby Saavedra M.D. Test: CXR1P Admit Phy: Silk Top Hat Body Maker: CB Interpreting Phy: Johnny Vázquez M.D. Diagnosis: CELLULITIS Ordering Phy: Gilles Le MD Service Date: 11/16/16 Admit Date: 11/16/16 MNE: [id number] CONF: DICTATED BY: Johnny Vázquez M.D.]] CC: Gilles Le M.D. Conly, Frank L., M.D. Endcc: [~ rep ct add3]] SINGLE VIEW CHEST CLINICAL HISTORY: Sepsis. FINDINGS: An AP, portable, upright chest radiograph is compared to study dated 10/16/2016. The examination is degraded by portable technique, large body habitus, and patient rotation. The heart is enlarged and there is atherosclerotic calcification of the thoracic aorta. There is pulmonary vascular congestion. Airspace opacities are seen at the left lung base. Small pleural effusions are identified. No pneumothorax is seen. The skeletal structures are osteopenic. The bony thorax is grossly intact. IMPRESSION: 1. Cardiomegaly with evidence of congestive failure. 2. Small pleural effusions. 3. Airspace opacities are identified at the left lung base. This could represent atelectasis versus developing pneumonia. Clinical correlation will be required. Electronically signed by: Johnny Vázquez M.D. 11/16/2016 2:38 PM Dictated Date/Time: 11/16/2016 2:37 PM The status of this report is Signed. Draft = Not yet reviewed or approved by Radiologist. Signed = Reviewed and approved by Radiologist. <AttendingPhy></AttendingPhy> <FamilyPhy>Roby Saavedra M.D.</FamilyPhy> < PrimaryPhy>Roby Saavedra M.D.</PrimaryPhy> <UnitNumber>[id number]</UnitNumber > <VisitNumber>[id number]</VisitNumber> <PatientName>WAYLON WILL</ PatientName> <DateOfBirth>1930</DateOfBirth> <Location>C[facility]EDC</Location> < ServiceDate>11/16/16</ServiceDate> <MNE>ESINDI</MNE> <OrderingPhy>Gilles Le MD</OrderingPhy> <OrderingPhyMNE>f rep ord dr booker</OrderingPhyMNE> < DictatingPhyMNE>f rep dict dr booker</DictatingPhyMNE> <CCListMNE>f rep ct ade</ CCListMNE> <AdmittingPhyMNE>f pt admit dr booker</AdmittingPhyMNE> <AttendingPhyMNE >f pt attend dr booker</AttendingPhyMNE> <ConsultingPhyMNE>f pt consult dr booker</ConsultingPhyMNE> <FamilyPhyMNE>f pt fam dr booker</FamilyPhyMNE> <OtherPhyMNE>f pt other dr booker</OtherPhyMNE> < PrimaryPhyMNE>f pt prim care dr booker</PrimaryPhyMNE> <ReferringPhyMNE>f pt referring dr booker</ReferringPhyMNE> Impression Assessment and Plan 86 y/o female with a history of recent DVT July 2016 s/p IVC filter, recent VRE infection, atrial fibrillation, diastolic CHF, HLD, CKD III, restless leg syndrome, anxiety and depression who presented to the ED on 11/16 with left lower extremity cellulitis. Patient afebrile, vital signs stable on arrival to ED. WBC 30.99. Creatinine elevated above baseline at 1.8. Lactic acid negative. CXR shows L base opacity, atelectasis vs pneumonia. Patient received 1 dose of daptomycin in the ED due to recent VRE infection. Cellulitis of LLE -Admit to med/surg -Xray LLE due to concern for osteomyelitis. L femur and tib/fib x-rays pending -Consider MRI of LLE if suspicion for osteo remains high -Daptomycin 500 mg IV q48h, renally dosed. Will also add Levaquin 750 mg IV q48h for possible PNA, low threshold to treat as pt came from fdc -Consult infectious disease -Continue wound vac -Wound care nurse and provider consulted -Contact precautions for recent VRE THERESE on CKD stage III--baseline creatinine 1.5 -Creatinine 1.8 on arrival -Hold Lasix for now -Continue to monitor Atrial fibrillation--stable, rate controlled -Continue metoprolol succinate 25 mg PO qd -Anticoagulation held for now due to recent hematoma Diastolic CHF--stable, no acute exacerbation -Hold Lasix as above HLD -Continue atorvastatin 20 mg PO qd and Zetia 10 mg PO qd Restless leg syndrome -Continue Sinemet 25/100 mg PO qd and Requip 2 mg PO TID Anxiety depression -Continue Zoloft 100 mg PO qd and Ativan 0.5 mg PO TID DVT prophylaxis -SUKHJINDER torres and SCDs Code Status -Level V, DO NOT RESUSCITATE This chart was completed in part utilizing [employer] Speech Voice Recognition software. Attempts were made to minimize the grammatical errors, random word insertions, pronoun errors and incomplete sentences. Any formal questions or concerns about the content, text or information contained within the body of this dictation should be directly addressed to the provider for clarification. Attending Addendum: I have physically seen and examined this patient, have directed the physician assistants medical extremities, and agree with the H&P as noted above with the following exceptions: NONE The patient is awake, well-developed and adequately nourished, alert and oriented 3, normocephalic and atraumatic, lying in bed and in no acute distress. HEENT--PERRL, EOMI, mucous membranes and oropharynx dry. Neck--supple, no JVD or bruits, thyroid normal, trachea midline, no adenopathy. Heart--normal S1 and S2, no extra beats, no murmurs, rubs or gallops. Lungs--clear bilaterally with good air movement, no respiratory distress, no accessory muscle use. Abdomen--normal bowel sounds and soft, nontender and nondistended, no hernias or masses, no organomegaly. Extremities/Dermatologic--right lower extremity no cyanosis, clubbing or edema. There are good distal pulses b/l. Left lower extremity erythema/induration/ warmth and pain Neurologic--cranial nerves II through XII grossly intact, motor and sensory examination normal. Rheumatologic--normal range of motion, nontender, muscles and joints. Psychiatric--normal affect. Assessment and Plan: 1. Left lower extremity cellulitis/pneumonia--patient will be admitted to a nonmonitored bed. Daptomycin 500 mg IV every 48 hours, Levaquin 750 mg IV every 24 hours. Continue wound VAC Consult wound care nurse. Patient with VRE We have concern for possible osteomyelitis due to recurrence of infection. Have ordered x-rays of lower extremity. We'll consider an MRI and/or bone scan if x-ray nonrevealing. Level of Care Med/Surg Advanced Directives Existing Living Will: No Existing Power of Associate Broker: Yes Resuscitation Status DO NOT RESUSCITATE VTE Prophylaxis VTE Risk Assessment Done? Y/N: Yes Risk Level: Moderate Given or contraindicated: T.E.D. Stockings, SCD's
[2016-11-16] MEDS: DOCUSATE SODIUM 100 MG CAP PO SCH (20:10)
[2016-11-16] MEDS: ROPINIROLE HCL 1 MG TAB PO SCH (20:11)
[2016-11-16] MEDS: LORAZEPAM 0.5 MG TAB PO SCH (20:11)
[2016-11-16] MEDS: TRAMADOL HCL 50 MG TAB PO PRN (21:25)
[2016-11-16 22:52] VITALS: BP 100/64; PULSE 88; TEMP 36.6; O2SAT 94
[2016-11-17 06:29] LABS: HEMATOCRIT 35.7 % (37-47); MEAN CELL VOLUME 83.4 fL (80-100); MEAN CORPUSCULAR HEMOGLOBIN 25.5 pg (25-34); MEAN CORPUSCULAR HGB CONC 30.5 g/dl (32-36); MEAN PLATELET VOLUME 10.7 fL (7.4-10.4); PLATELET COUNT 284 K/uL (130-400); RED BLOOD COUNT 4.28 M/uL (4.2-5.4); WHITE BLOOD COUNT 26.04 K/uL (4.8-10.8)
[2016-11-17 06:58] LABS: BUN/CREATININE RATIO 33.9 (10-20); CALCIUM 9.4 mg/dl (8.5-10.1); CREATININE 1.7 mg/dl (0.60-1.20); POTASSIUM 4.4 mmol/L (3.5-5.1)
[2016-11-17 07:33] LABS: BASO % 0.1 %; BASO ABS # 0.03 K/uL (0-0.2); COMPLETE YES; IG% 0.5 %; LYMPH % 7.1 %; LYMPH ABS # 1.84 K/uL (1.2-3.4); MONO % 4.9 %; NEUT % 86.4 %; STOMATOCYTE 1+
[2016-11-17 07:45] VITALS: BP 111/69; PULSE 89; TEMP 36.8; O2SAT 90
[2016-11-17] MEDS: DOCUSATE SODIUM 100 MG CAP PO SCH ×2 (08:17→20:27)
[2016-11-17] MEDS: ATORVASTATIN 20 MG TAB PO SCH (08:17)
[2016-11-17] MEDS: ROPINIROLE HCL 1 MG TAB PO SCH ×3 (08:17→20:27)
[2016-11-17] MEDS: PANTOprazole SOD 40 MG TAB PO SCH (08:18)
[2016-11-17] MEDS: DOCUSATE SODIUM/SENNA 50/8.6MG TAB PO SCH (08:18)
[2016-11-17] MEDS: CEROVITE ADV FORMULA TAB PO SCH (08:18)
[2016-11-17] MEDS: LACTOBACILLUS ACIDOPHILUS (FLORANEX) TAB PO SCH ×3 (08:18→17:42)
[2016-11-17] MEDS: SPIRONOLACTONE 25 MG TAB PO SCH (08:19)
[2016-11-17] MEDS: METOPROLOL SUCC 25MG EXT REL TAB PO SCH (08:19)
[2016-11-17] MEDS: CARBIDOPA/LEVODOPA 25/100MG TAB PO SCH (08:19)
[2016-11-17] MEDS: EZETIMIBE 10MG TAB PO SCH (08:19)
[2016-11-17] MEDS: SERTRALINE HCL 100 MG TAB PO SCH (08:20)
[2016-11-17] MEDS: LORAZEPAM 0.5 MG TAB PO SCH ×3 (08:23→20:27)
[2016-11-17] MEDS: TRAMADOL HCL 50 MG TAB PO PRN (08:24)
[2016-11-17 08:30] VITALS: O2SAT 90
--- NOTE | 2016-11-17 11:21 | Medical Consult ---
Consultation Date of Consultation: Nov 17, 2016. Attending Physician: Durga Hogan M.D. History of Present Illness pt admitted with cellulitis, was last seen by ID on 10/15, was found to have infected hip wound at that time, culture grew E. faecalis, VRE and peptostreptococcus. was treated with dapto and sent to [facility] for care. She has since followed with wound center, was to have visit today but was admitted for lle cellulitis. She does not know if she was on abx, per wound center all abx stopped by [facility], unclear when. she was restarted on dapto on admission and levaquin added as well, renally dosed. she has pain in LLE but states improved since admission. blood cultures pending. tolerating abx. no fevers here but reported fever at [facility]. She was last seen by wound center on 11/10 - culture obtained, growing pseudomonas, VRE and H. influenza. wbc was significantly elevated on admission, 30.9, slighlty improved today No abd pain, no n/v/d. She does have drainage from wound. No sob, no cp. all remaining ros reviewed and are negative. Past Medical/Surgical History Medical Problems: (1) Failure of outpatient treatment Status: Acute (2) History of infection with vancomycin resistant Enterococcus(VRE) Status: Acute (3) Left leg cellulitis Status: Acute (4) Leukocytosis Status: Acute (5) Serum creatinine raised Status: Acute Family History Breast cancer Diabetes mellitus Multiple myeloma Social History Smoking Status: Former Smoker Smokeless Tobacco Use: No Alcohol Use: none Drug Use: none Marital Status: Housing Status: care home Occupation Status: retired Allergies Coded Allergies: Ciprofloxacin (Unverified Allergy, Intermediate, RASH, 10/08/16) Current Inpatient Medications Current Inpatient Medications Medications (Trade) Dose Ordered Sig/Marisela Route Start Time Stop Time Status Last Admin Dose Admin Acetaminophen (Tylenol Tab) 650 mg Q4H PRN PO 11/16/16 16:15 12/16/16 16:14 11/17/16 02:34 650 MG Al Hydrox/Mg Hydrox/Simethicone (Maalox Max Susp) 15 ml Q4H PRN PO 11/16/16 16:15 12/16/16 16:14 Magnesium Hydroxide (Milk Of Magnesia Susp) 30 ml Q6H PRN PO 11/16/16 16:15 12/16/16 16:14 Polyethylene (Miralax Powder Packet) 17 gm DAILY PRN PO 11/16/16 16:15 12/16/16 16:14 Ondansetron HCl (Zofran Inj) 4 mg Q6H PRN IV 11/16/16 16:15 12/16/16 16:14 Daptomycin 500 mg/ Sodium Chloride 60 ml @ 100 mls/hr Q2D@1600 IV 11/18/16 16:00 11/26/16 15:59 Levofloxacin 750 mg/Prmx 150 ml @ 100 mls/hr Q48H IV 11/16/16 18:00 11/23/16 17:59 11/16/16 18:03 100 MLS/HR Atorvastatin Calcium (Lipitor Tab) 20 mg DAILY PO 11/17/16 08:00 12/17/16 08:59 11/17/16 08:17 20 MG Carbidopa/Levodopa (Sinemet 25/ 100MG Tab) 1 tab DAILY PO 11/17/16 08:00 12/17/16 08:59 11/17/16 08:19 1 TAB Docusate Sodium (coLACE CAP) 100 mg BID PO 11/16/16 20:00 12/16/16 20:59 11/17/16 08:17 100 MG EZETIMIBE (Zetia Tab) 10 mg DAILY PO 11/17/16 08:00 12/17/16 08:59 11/17/16 08:19 10 MG Furosemide (Lasix Tab) 80 mg BID17 PO 11/16/16 17:45 12/16/16 17:44 Future Hold 11/16/16 18:03 80 MG Lorazepam (Ativan Tab) 0.5 mg TID PO 11/16/16 20:00 12/16/16 20:59 11/17/16 08:23 0.5 MG Metoprolol Succinate (Toprol Xl Tab) 25 mg DAILY PO 11/17/16 08:00 12/17/16 08:59 11/17/16 08:19 25 MG Multivitamins/ Minerals (Multivitamin W/ Minerals Tab) 1 tab DAILY PO 11/17/16 08:00 12/17/16 08:59 11/17/16 08:18 1 TAB Ropinirole HCl (Requip Tab) 2 mg TID PO 11/16/16 20:00 12/16/16 20:59 11/17/16 08:17 2 MG Senna/Docusate Sodium (Senokot S Tab) 1 tab DAILY PO 11/17/16 08:00 12/17/16 08:59 11/17/16 08:18 1 TAB Sertraline HCl (Zoloft Tab) 100 mg DAILY PO 11/17/16 08:00 12/17/16 08:59 11/17/16 08:20 100 MG Spironolactone (Aldactone Tab) 25 mg DAILY PO 11/17/16 08:00 12/17/16 08:59 11/17/16 08:19 25 MG Tramadol HCl (Ultram Tab) 50 mg TID PRN PO 11/16/16 16:45 12/16/16 16:44 11/17/16 08:24 50 MG Pantoprazole Sodium (Protonix Tab) 40 mg QAM PO 11/17/16 08:00 12/17/16 08:59 11/17/16 08:18 40 MG Lactobacillus Acidophilus (Floranex Tab) 4 tab TIDM PO 11/16/16 17:30 12/16/16 17:59 11/17/16 08:18 4 TAB Mirtazapine (Remeron Tab) 15 mg HS PO 11/17/16 21:00 12/17/16 20:59 Physical Exam Date Time Temp Pulse Resp B/P (MAP) Pulse Ox O2 Delivery O2 Flow Rate FiO2 11/17/16 08:30 90 Room Air 11/17/16 07:45 36.8 89 18 111/69 (83) 90 Room Air 11/17/16 00:00 Nasal Cannula 2.0 11/16/16 22:52 36.6 88 16 100/64 (76) 94 Nasal Cannula 1.0 11/16/16 17:32 36.6 72 20 109/67 (81) 94 2.0 11/16/16 17:19 36.9 84 16 126/74 98 Room Air 2.0 11/16/16 16:56 36.9 76 16 116/66 98 Room Air 2.0 11/16/16 16:00 76 16 116/66 98 11/16/16 14:23 95 Room Air 11/16/16 13:47 36.9 84 14 120/56 94 Nasal Cannula 2.0 General Appearance: WD/WN, no apparent distress Head: normocephalic, atraumatic Eyes: normal inspection, EOMI ENT: pharynx normal Neck: supple Respiratory/Chest: lungs clear, normal breath sounds, no respiratory distress Cardiovascular: regular rate, rhythm, no edema Abdomen/GI: non tender, soft Extremities/Musculoskelatal: no pedal edema, + inflammation, + pertinent finding (lle warm to touch, + erythema to mid calf, no open wounds ll. left hip wound open with yellow/green drainage, foul odor, tenderness to palpation, + surroudning erytehma, + grnaulation tissue, no necrosis noted) Neurologic/Psych: alert, oriented x 3 Skin: normal color Laboratory Results Item Value Date Time Gram Stain - Final Complete 11/10/16 1045 Abscess Hip , Left Gram Stain - Final Complete 10/08/16 1515 Drainage-Deep Hip , Left Last 24 Hours Test 11/16/16 15:15 11/16/16 15:21 11/17/16 06:00 White Blood Count 30.99 K/uL 26.04 K/uL Red Blood Count 4.51 M/uL 4.28 M/uL Hemoglobin 11.5 g/dL 10.9 g/dL Hematocrit 37.7 % 35.7 % Mean Corpuscular Volume 83.6 fL 83.4 fL Mean Corpuscular Hemoglobin 25.5 pg 25.5 pg Mean Corpuscular Hemoglobin Concent 30.5 g/dl 30.5 g/dl Platelet Count 284 K/uL 284 K/uL Mean Platelet Volume 10.6 fL 10.7 fL Neutrophils (%) (Auto) 86.2 % 86.4 % Lymphocytes (%) (Auto) 6.9 % 7.1 % Monocytes (%) (Auto) 5.8 % 4.9 % Eosinophils (%) (Auto) 0.4 % 1.0 % Basophils (%) (Auto) 0.1 % 0.1 % Neutrophils # (Auto) 26.73 K/uL 22.51 K/uL Lymphocytes # (Auto) 2.14 K/uL 1.84 K/uL Monocytes # (Auto) 1.79 K/uL 1.27 K/uL Eosinophils # (Auto) 0.12 K/uL 0.27 K/uL Basophils # (Auto) 0.03 K/uL 0.03 K/uL RDW Standard Deviation 51.6 fL 51.0 fL RDW Coefficient of Variation 16.8 % 16.8 % Immature Granulocyte % (Auto) 0.6 % 0.5 % Immature Granulocyte # (Auto) 0.18 K/uL 0.12 K/uL Red Blood Cell Morphology Unremarkable Prothrombin Time 12.5 SECONDS Prothromb Time International Ratio 1.2 Activated Partial Thromboplast Time 32.7 SECONDS Partial Thromboplastin Ratio 1.3 Sodium Level 136 mmol/L 134 mmol/L Potassium Level 4.2 mmol/L 4.4 mmol/L Chloride Level 91 mmol/L 91 mmol/L Carbon Dioxide Level 37 mmol/L 37 mmol/L Anion Gap 8.0 mmol/L 6.0 mmol/L Blood Urea Nitrogen 55 mg/dl 58 mg/dl Creatinine 1.80 mg/dl 1.70 mg/dl Est Creatinine Clear Calc Drug Dose 26.3 ml/min 27.9 ml/min Estimated GFR () 29.0 31.1 Estimated GFR (Non- 25.0 26.8 BUN/Creatinine Ratio 30.3 33.9 Random Glucose 88 mg/dl 114 mg/dl Calcium Level 9.7 mg/dl 9.4 mg/dl Total Bilirubin 0.7 mg/dl Aspartate Amino Transf (AST/SGOT) 21 U/L Alanine Aminotransferase (ALT/SGPT) 12 U/L Alkaline Phosphatase 90 U/L Total Protein 8.0 gm/dl Albumin 2.5 gm/dl Globulin 5.5 gm/dl Albumin/Globulin Ratio 0.5 Bedside Lactic Acid Venous 0.72 mmol/L Stomatocytes 1+ Assessment & Plan (1) Postoperative wound infection Assessment & Plan: follow cultures, will order wound culture as well. continue current abx. (2) Cellulitis (3) Leukocytosis Status: Acute Problem Qualifiers (1) Leukocytosis: Leukocytosis type: unspecified Qualified Codes: D72.829 - Elevated white blood cell count, unspecified
--- NOTE | 2016-11-17 13:12 | Wound Clinic Return Visit ---
Wound Clinic Return Visit Date of Service Nov 17, 2016. Subjective The patient was admitted to [facility] yesterday for further evaluation of increased erythema and cellulitis of the LLE. Patient has been treated one week ago at the Wound Clinic for a post operative non healing wound to the LLE . The patient today denies any specific new systemic complaints. No fever,chills,CP or SOB. Does still have some pain in the left lower leg but not at the wound site. Objective Last Vital Signs Documentation Date Time Temp Pulse Resp B/P (MAP) Pulse Ox O2 Delivery O2 Flow Rate FiO2 11/17/16 08:30 90 Room Air 11/17/16 07:45 36.8 89 18 111/69 (83) 11/17/16 00:00 2.0 The patients vital signs were reviewed and found to be unremarkable. The patient is afebrile today. There is evidence of saravanan wound erythema as well as erythema in the left calf and foot region. No fluctuance noted. No active drainage or odor at the site. No significant slough or narcosis in the wound itself. Assessment 1.: Post Operative non healing wound LLE 2.: Cellulitis LLE Plan No debridement is indicated at this time. The wound will be managed with wound Vac 125 mm negative pressure black foam. Wound vac changes every other day. PAtient will be monitored while inpatient and follwed at the clinic on discharge.
[2016-11-17 16:04] VITALS: BP 104/71; PULSE 83; TEMP 36.2; O2SAT 95
--- NOTE | 2016-11-17 17:36 | Hospitalist Progress Note ---
Hospitalist Progress Note Date of Service Nov 17, 2016. Subjective Pt evaluation today including: conversation w/ patient, conversation w/ family , physical exam, chart review, lab review, review of inpatient medication list Objective Vital Signs Date Time Temp Pulse Resp B/P (MAP) Pulse Ox O2 Delivery O2 Flow Rate FiO2 11/17/16 16:30 Room Air 11/17/16 16:04 36.2 83 20 104/71 (82) 95 Nasal Cannula 1.0 11/17/16 08:30 90 Room Air 11/17/16 07:45 36.8 89 18 111/69 (83) 90 Room Air 11/17/16 00:00 Nasal Cannula 2.0 11/16/16 22:52 36.6 88 16 100/64 (76) 94 Nasal Cannula 1.0 Physical Exam General Appearance: no apparent distress Eyes: normal inspection ENT: hearing grossly normal Neck: trachea midline Respiratory/Chest: lungs clear Cardiovascular: regular rate, rhythm Abdomen: normal bowel sounds Extremities: + pertinent finding (cellulitic changes of the left lower extremity) Laboratory Results Last 24 Hours Test 11/17/16 06:00 White Blood Count 26.04 K/uL Red Blood Count 4.28 M/uL Hemoglobin 10.9 g/dL Hematocrit 35.7 % Mean Corpuscular Volume 83.4 fL Mean Corpuscular Hemoglobin 25.5 pg Mean Corpuscular Hemoglobin Concent 30.5 g/dl Platelet Count 284 K/uL Mean Platelet Volume 10.7 fL Neutrophils (%) (Auto) 86.4 % Lymphocytes (%) (Auto) 7.1 % Monocytes (%) (Auto) 4.9 % Eosinophils (%) (Auto) 1.0 % Basophils (%) (Auto) 0.1 % Neutrophils # (Auto) 22.51 K/uL Lymphocytes # (Auto) 1.84 K/uL Monocytes # (Auto) 1.27 K/uL Eosinophils # (Auto) 0.27 K/uL Basophils # (Auto) 0.03 K/uL RDW Standard Deviation 51.0 fL RDW Coefficient of Variation 16.8 % Immature Granulocyte % (Auto) 0.5 % Immature Granulocyte # (Auto) 0.12 K/uL Stomatocytes 1+ Sodium Level 134 mmol/L Potassium Level 4.4 mmol/L Chloride Level 91 mmol/L Carbon Dioxide Level 37 mmol/L Anion Gap 6.0 mmol/L Blood Urea Nitrogen 58 mg/dl Creatinine 1.70 mg/dl Est Creatinine Clear Calc Drug Dose 27.9 ml/min Estimated GFR () 31.1 Estimated GFR (Non- 26.8 BUN/Creatinine Ratio 33.9 Random Glucose 114 mg/dl Calcium Level 9.4 mg/dl Assessment and Plan (1) Left leg cellulitis Assessment & Plan: Continue daptomycin and vancomycin infectious disease and wound care consultation appreciated case discussed with patient's family at the bedside awaiting cultures for further adjustment of antibiotics (2) Leukocytosis (3) Postoperative wound infection Assessment & Plan: Wound care appreciated wound VAC is restarted (4) HTN (hypertension) Problem Qualifiers (1) Leukocytosis: Leukocytosis type: unspecified Qualified Codes: D72.829 - Elevated white blood cell count, unspecified
[2016-11-17] MEDS: MIRTAZAPINE TAB 15 MG TAB PO SCH (20:30)
[2016-11-17 23:54] VITALS: BP 115/76; PULSE 81; TEMP 36.8; O2SAT 96
[2016-11-18 06:37] LABS: BASO % 0.2 %; BASO ABS # 0.05 K/uL (0-0.2); COMPLETE YES; EOS % 3.7 %; IG% 0.5 %; LYMPH % 7.9 %; LYMPH ABS # 1.78 K/uL (1.2-3.4); MEAN CELL VOLUME 82.7 fL (80-100); MEAN CORPUSCULAR HEMOGLOBIN 25.5 pg (25-34); MEAN CORPUSCULAR HGB CONC 30.9 g/dl (32-36); MEAN PLATELET VOLUME 10.4 fL (7.4-10.4); MONO % 7.1 %; NEUT % 80.6 %; PLATELET COUNT 284 K/uL (130-400); RED BLOOD COUNT 4.23 M/uL (4.2-5.4); WHITE BLOOD COUNT 22.64 K/uL (4.8-10.8)
[2016-11-18 07:08] LABS: BUN/CREATININE RATIO 35.4 (10-20); CALCIUM 9.7 mg/dl (8.5-10.1); CREATININE 1.6 mg/dl (0.60-1.20); POTASSIUM 4.1 mmol/L (3.5-5.1)
[2016-11-18 08:05] VITALS: BP_SYST 127; BP_DIAS 22; BP_DIAS 72; PULSE 68; TEMP 36.4; O2SAT 96
[2016-11-18 08:31] LABS: BASO % 0.2 %; BASO ABS # 0.04 K/uL (0-0.2); COMPLETE YES; EOS % 3.3 %; HEMATOCRIT 35.4 % (37-47); IG% 0.5 %; LYMPH % 8.5 %; LYMPH ABS # 1.86 K/uL (1.2-3.4); MEAN CELL VOLUME 82.9 fL (80-100); MEAN CORPUSCULAR HEMOGLOBIN 26.2 pg (25-34); MEAN CORPUSCULAR HGB CONC 31.6 g/dl (32-36); MEAN PLATELET VOLUME 10.2 fL (7.4-10.4); MONO % 7.2 %; NEUT % 80.3 %; PLATELET COUNT 281 K/uL (130-400); RED BLOOD COUNT 4.27 M/uL (4.2-5.4); WHITE BLOOD COUNT 21.97 K/uL (4.8-10.8)
[2016-11-18] MEDS: TRAMADOL HCL 50 MG TAB PO PRN (08:40)
[2016-11-18] MEDS: LORAZEPAM 0.5 MG TAB PO SCH ×3 (08:40→22:04)
[2016-11-18] MEDS: PANTOprazole SOD 40 MG TAB PO SCH (08:41)
[2016-11-18] MEDS: SERTRALINE HCL 100 MG TAB PO SCH (08:42)
[2016-11-18] MEDS: DOCUSATE SODIUM/SENNA 50/8.6MG TAB PO SCH (08:42)
[2016-11-18] MEDS: ROPINIROLE HCL 1 MG TAB PO SCH ×3 (08:42→20:23)
[2016-11-18] MEDS: CARBIDOPA/LEVODOPA 25/100MG TAB PO SCH (08:42)
[2016-11-18] MEDS: METOPROLOL SUCC 25MG EXT REL TAB PO SCH (08:42)
[2016-11-18] MEDS: SPIRONOLACTONE 25 MG TAB PO SCH (08:42)
[2016-11-18] MEDS: DOCUSATE SODIUM 100 MG CAP PO SCH ×2 (08:43→20:23)
[2016-11-18] MEDS: CEROVITE ADV FORMULA TAB PO SCH (08:43)
[2016-11-18] MEDS: ATORVASTATIN 20 MG TAB PO SCH (08:43)
[2016-11-18] MEDS: EZETIMIBE 10MG TAB PO SCH (08:43)
[2016-11-18] MEDS: LACTOBACILLUS ACIDOPHILUS (FLORANEX) TAB PO SCH ×3 (08:43→16:19)
[2016-11-18 08:49] VITALS: BP 92/62; PULSE 78
[2016-11-18 08:54] LABS: BUN/CREATININE RATIO 34.1 (10-20); CALCIUM 9.8 mg/dl (8.5-10.1); CREATININE 1.6 mg/dl (0.60-1.20); POTASSIUM 3.8 mmol/L (3.5-5.1)
--- NOTE | 2016-11-18 14:30 | Progress Note ---
Subjective Date of Service: Nov 18, 2016. Subjective Pt evaluation today including: conversation w/ patient, physical exam, chart review, lab review pt feeling better today. tolerating abx. blood cultures negative. wound care eval, vac placed. afebrile. wbc improving, 21.9 today but in 30's on admission. States pain in lle much better today. denies abd pain, no n/v/d. all remaining ros reviewed and are negative. Problem List Medical Problems: (1) Failure of outpatient treatment Status: Acute (2) History of infection with vancomycin resistant Enterococcus(VRE) Status: Acute (3) Left leg cellulitis Status: Acute (4) Leukocytosis Status: Acute (5) Serum creatinine raised Status: Acute Objective Vital Signs Date Time Temp Pulse Resp B/P (MAP) Pulse Ox O2 Delivery O2 Flow Rate FiO2 11/18/16 08:49 78 92/62 (72) 11/18/16 08:30 Room Air 11/18/16 08:05 36.4 68 20 127/72 (90) 96 2.0 11/18/16 00:03 Room Air 11/17/16 23:54 36.8 81 16 115/76 (89) 96 Nasal Cannula 2.0 11/17/16 20:00 Room Air 11/17/16 16:30 Room Air 11/17/16 16:04 36.2 83 20 104/71 (82) 95 Nasal Cannula 1.0 Physical Exam General Appearance: WD/WN, no apparent distress Eyes: normal inspection, EOMI Neck: supple Respiratory/Chest: lungs clear, normal breath sounds, no respiratory distress Cardiovascular: regular rate, rhythm, no edema Abdomen: non tender, soft Extremities: + inflammation Neurologic/Psychiatric: alert, oriented x 3 Skin: normal color Comments: left hip vac in place, no surrounding erythema, edema, warmth, tenderness. lle with decreased erythema and warmth, still some tenderness. Laboratory Results Item Value Date Time Blood Culture - Preliminary Resulted 11/16/16 1500 Blood NO GROWTH TO DATE. Blood Culture - Preliminary Resulted 11/16/16 1515 Blood NO GROWTH TO DATE. Last 24 Hours Test 11/18/16 05:55 11/18/16 08:03 11/18/16 09:56 White Blood Count 22.64 K/uL 21.97 K/uL Red Blood Count 4.23 M/uL 4.27 M/uL Hemoglobin 10.8 g/dL 11.2 g/dL Hematocrit 35.0 % 35.4 % Mean Corpuscular Volume 82.7 fL 82.9 fL Mean Corpuscular Hemoglobin 25.5 pg 26.2 pg Mean Corpuscular Hemoglobin Concent 30.9 g/dl 31.6 g/dl Platelet Count 284 K/uL 281 K/uL Mean Platelet Volume 10.4 fL 10.2 fL Neutrophils (%) (Auto) 80.6 % 80.3 % Lymphocytes (%) (Auto) 7.9 % 8.5 % Monocytes (%) (Auto) 7.1 % 7.2 % Eosinophils (%) (Auto) 3.7 % 3.3 % Basophils (%) (Auto) 0.2 % 0.2 % Neutrophils # (Auto) 18.27 K/uL 17.64 K/uL Lymphocytes # (Auto) 1.78 K/uL 1.86 K/uL Monocytes # (Auto) 1.60 K/uL 1.59 K/uL Eosinophils # (Auto) 0.83 K/uL 0.73 K/uL Basophils # (Auto) 0.05 K/uL 0.04 K/uL RDW Standard Deviation 51.1 fL 51.5 fL RDW Coefficient of Variation 17.0 % 16.9 % Immature Granulocyte % (Auto) 0.5 % 0.5 % Immature Granulocyte # (Auto) 0.11 K/uL 0.11 K/uL Nucleated RBC Absolute Count (auto) 0.02 K/uL Nucleated Red Blood Cells % 0.1 % Sodium Level 134 mmol/L 134 mmol/L Potassium Level 4.1 mmol/L 3.8 mmol/L Chloride Level 91 mmol/L 90 mmol/L Carbon Dioxide Level 35 mmol/L 37 mmol/L Anion Gap 8.0 mmol/L 7.0 mmol/L Blood Urea Nitrogen 57 mg/dl 55 mg/dl Creatinine 1.60 mg/dl 1.60 mg/dl Est Creatinine Clear Calc Drug Dose 29.6 ml/min 29.6 ml/min Estimated GFR () 33.5 33.5 Estimated GFR (Non- 28.9 28.9 BUN/Creatinine Ratio 35.4 34.1 Random Glucose 78 mg/dl 83 mg/dl Calcium Level 9.7 mg/dl 9.8 mg/dl Total Creatine Kinase 12 U/L Assessment and Plan (1) Postoperative wound infection Assessment & Plan: continue current abx, renal dosing. will need weekly cbc, cmp, cpk ,esr whle on therapy. will plan to follow at wound center as well. would give min 6 weeks. duration will depend on improvement. will plan to continue to follow with wound center. (2) Cellulitis (3) Leukocytosis Problem Qualifiers (1) Leukocytosis: Leukocytosis type: unspecified Qualified Codes: D72.829 - Elevated white blood cell count, unspecified
[2016-11-18 15:30] VITALS: BP 127/53; PULSE 77; TEMP 36.4; O2SAT 96
[2016-11-18] MEDS ORDERED: DAPTOmycin IV 500 MG in SODIUM CHLORIDE 0.9% 50ML 50 ML IV SCH (16:00)
[2016-11-18] MEDS: LEVOFLOXACIN / D5W 750 MG in PREMIXED IN D5W 150 ML IV SCH (17:31)
[2016-11-18] MEDS: MIRTAZAPINE TAB 15 MG TAB PO SCH (20:24)
[2016-11-18 23:09] VITALS: BP 113/67; PULSE 77; TEMP 36.6; O2SAT 97
[2016-11-19] MEDS: TRAMADOL HCL 50 MG TAB PO PRN ×2 (01:32→18:14)
--- NOTE | 2016-11-19 03:55 | Hospitalist Progress Note ---
Hospitalist Progress Note Date of Service Nov 19, 2016. Subjective Pt evaluation today including: conversation w/ patient Patient with no complaints All Other Systems: Reviewed and Negative Medications Last Resulted CBC 11/18/16 08:03 Red Blood Count 4.27, Mean Corpuscular Volume 82.9, Mean Corpuscular Hemoglobin 26.2, Mean Corpuscular Hemoglobin Concent 31.6, Mean Platelet Volume 10.2, Neutrophils (%) (Auto) 80.3, Lymphocytes (%) (Auto) 8.5, Monocytes (%) (Auto) 7.2, Eosinophils (%) (Auto) 3.3, Basophils (%) (Auto) 0.2, Neutrophils # (Auto) 17.64, Lymphocytes # (Auto) 1.86, Monocytes # (Auto) 1.59, Eosinophils # (Auto) 0.73, Basophils # (Auto) 0.04 Last Resulted BMP 11/18/16 08:03 Objective Vital Signs Date Time Temp Pulse Resp B/P (MAP) Pulse Ox O2 Delivery O2 Flow Rate FiO2 11/19/16 00:01 Nasal Cannula 2.0 11/18/16 23:09 36.6 77 20 113/67 (82) 97 Nasal Cannula 2.0 11/18/16 19:21 Nasal Cannula 2.0 11/18/16 15:41 Room Air 11/18/16 15:30 36.4 77 20 127/53 (77) 96 Nasal Cannula 2.0 11/18/16 08:49 78 92/62 (72) 11/18/16 08:30 Room Air 11/18/16 08:05 36.4 68 20 127/72 (90) 96 2.0 Physical Exam General Appearance: no apparent distress ENT: hearing grossly normal Neck: trachea midline Respiratory/Chest: lungs clear Cardiovascular: regular rate, rhythm Abdomen: non tender Extremities: + pertinent finding (cellulitic changes improving the left lower extremity) Laboratory Results Last 24 Hours Test 11/18/16 05:55 11/18/16 08:03 11/18/16 09:56 White Blood Count 22.64 K/uL 21.97 K/uL Red Blood Count 4.23 M/uL 4.27 M/uL Hemoglobin 10.8 g/dL 11.2 g/dL Hematocrit 35.0 % 35.4 % Mean Corpuscular Volume 82.7 fL 82.9 fL Mean Corpuscular Hemoglobin 25.5 pg 26.2 pg Mean Corpuscular Hemoglobin Concent 30.9 g/dl 31.6 g/dl Platelet Count 284 K/uL 281 K/uL Mean Platelet Volume 10.4 fL 10.2 fL Neutrophils (%) (Auto) 80.6 % 80.3 % Lymphocytes (%) (Auto) 7.9 % 8.5 % Monocytes (%) (Auto) 7.1 % 7.2 % Eosinophils (%) (Auto) 3.7 % 3.3 % Basophils (%) (Auto) 0.2 % 0.2 % Neutrophils # (Auto) 18.27 K/uL 17.64 K/uL Lymphocytes # (Auto) 1.78 K/uL 1.86 K/uL Monocytes # (Auto) 1.60 K/uL 1.59 K/uL Eosinophils # (Auto) 0.83 K/uL 0.73 K/uL Basophils # (Auto) 0.05 K/uL 0.04 K/uL RDW Standard Deviation 51.1 fL 51.5 fL RDW Coefficient of Variation 17.0 % 16.9 % Immature Granulocyte % (Auto) 0.5 % 0.5 % Immature Granulocyte # (Auto) 0.11 K/uL 0.11 K/uL Nucleated RBC Absolute Count (auto) 0.02 K/uL Nucleated Red Blood Cells % 0.1 % Sodium Level 134 mmol/L 134 mmol/L Potassium Level 4.1 mmol/L 3.8 mmol/L Chloride Level 91 mmol/L 90 mmol/L Carbon Dioxide Level 35 mmol/L 37 mmol/L Anion Gap 8.0 mmol/L 7.0 mmol/L Blood Urea Nitrogen 57 mg/dl 55 mg/dl Creatinine 1.60 mg/dl 1.60 mg/dl Est Creatinine Clear Calc Drug Dose 29.6 ml/min 29.6 ml/min Estimated GFR () 33.5 33.5 Estimated GFR (Non- 28.9 28.9 BUN/Creatinine Ratio 35.4 34.1 Random Glucose 78 mg/dl 83 mg/dl Calcium Level 9.7 mg/dl 9.8 mg/dl Total Creatine Kinase 12 U/L Assessment and Plan (1) Left leg cellulitis Assessment & Plan: Continue daptomycin and Levaquin (2) Leukocytosis Assessment & Plan: Improving with current management (3) Postoperative wound infection (4) HTN (hypertension) Assessment & Plan: Continue present medications Problem Qualifiers (1) Leukocytosis: Leukocytosis type: unspecified Qualified Codes: D72.829 - Elevated white blood cell count, unspecified
[2016-11-19 07:14] VITALS: BP 124/74; PULSE 96; TEMP 36.7; O2SAT 93
[2016-11-19 08:25] LABS: BASO % 0.2 %; BASO ABS # 0.04 K/uL (0-0.2); COMPLETE YES; EOS % 4.1 %; HEMATOCRIT 35.2 % (37-47); IG% 0.8 %; LYMPH % 6.2 %; LYMPH ABS # 1.36 K/uL (1.2-3.4); MEAN CELL VOLUME 81.1 fL (80-100); MEAN CORPUSCULAR HEMOGLOBIN 24.9 pg (25-34); MEAN CORPUSCULAR HGB CONC 30.7 g/dl (32-36); MEAN PLATELET VOLUME 10.4 fL (7.4-10.4); MONO % 8.8 %; NEUT % 79.9 %; PLATELET COUNT 333 K/uL (130-400); RED BLOOD COUNT 4.34 M/uL (4.2-5.4); WHITE BLOOD COUNT 21.94 K/uL (4.8-10.8)
[2016-11-19] MEDS: CEROVITE ADV FORMULA TAB PO SCH (08:28)
[2016-11-19] MEDS: METOPROLOL SUCC 25MG EXT REL TAB PO SCH (08:28)
[2016-11-19] MEDS: LORAZEPAM 0.5 MG TAB PO SCH ×3 (08:28→20:27)
[2016-11-19] MEDS: ROPINIROLE HCL 1 MG TAB PO SCH ×3 (08:28→20:32)
[2016-11-19] MEDS: EZETIMIBE 10MG TAB PO SCH (08:29)
[2016-11-19] MEDS: SERTRALINE HCL 100 MG TAB PO SCH (08:29)
[2016-11-19] MEDS: CARBIDOPA/LEVODOPA 25/100MG TAB PO SCH (08:29)
[2016-11-19] MEDS: PANTOprazole SOD 40 MG TAB PO SCH (08:29)
[2016-11-19] MEDS: ATORVASTATIN 20 MG TAB PO SCH (08:29)
[2016-11-19] MEDS: LACTOBACILLUS ACIDOPHILUS (FLORANEX) TAB PO SCH ×3 (08:29→17:07)
[2016-11-19] MEDS: DOCUSATE SODIUM 100 MG CAP PO SCH ×2 (08:29→20:31)
[2016-11-19] MEDS: DOCUSATE SODIUM/SENNA 50/8.6MG TAB PO SCH (08:29)
[2016-11-19] MEDS: SPIRONOLACTONE 25 MG TAB PO SCH (08:30)
[2016-11-19 08:53] LABS: BUN/CREATININE RATIO 34.9 (10-20); CALCIUM 9.5 mg/dl (8.5-10.1); CREATININE 1.5 mg/dl (0.60-1.20); POTASSIUM 3.7 mmol/L (3.5-5.1)
--- NOTE | 2016-11-19 11:15 | Pharmacy Progress Note ---
Automatic IV to PO Conversion Date of Service: Nov 19, 2016. [facility] has identified patient as an appropriate candidate for automatic intravenous to oral conversion. Eligible medication: LVQ IV every 48 hours. Day # 4 of IV therapy. Subjective The patient is a 86 year old female admitted on Nov 16, 2016 at 16:32 for Cellulitis. Objective Vital Signs: Vital Signs Past 12 Hours Date Time Temp Pulse Resp B/P (MAP) Pulse Ox O2 Delivery O2 Flow Rate FiO2 11/19/16 08:30 Room Air 11/19/16 07:14 36.7 96 20 124/74 (91) 93 Nasal Cannula 2.0 11/19/16 00:01 Nasal Cannula 2.0 White Blood Count: Test 11/19/16 08:07 White Blood Count 21.94 K/uL (4.8-10.8) Red Blood Count 4.34 M/uL (4.2-5.4) Hemoglobin 10.8 g/dL (12.0-16.0) Hematocrit 35.2 % (37-47) Mean Corpuscular Volume 81.1 fL (80-100) Mean Corpuscular Hemoglobin 24.9 pg (25-34) Mean Corpuscular Hemoglobin Concent 30.7 g/dl (32-36) Platelet Count 333 K/uL (130-400) Mean Platelet Volume 10.4 fL (7.4-10.4) Neutrophils (%) (Auto) 79.9 % Lymphocytes (%) (Auto) 6.2 % Monocytes (%) (Auto) 8.8 % Eosinophils (%) (Auto) 4.1 % Basophils (%) (Auto) 0.2 % Neutrophils # (Auto) 17.54 K/uL (1.4-6.5) Lymphocytes # (Auto) 1.36 K/uL (1.2-3.4) Monocytes # (Auto) 1.92 K/uL (0.11-0.59) Eosinophils # (Auto) 0.90 K/uL (0-0.5) Basophils # (Auto) 0.04 K/uL (0-0.2) Height (Feet): 5 Height (Inches): 0.00 Weight (Kilograms): 117.700 Type of Diet: SURAJ 2GM Sodium Assessment & Plan The Infectious Disease Society and the [employer] [place] Thor[employer] Society recommend conversion to oral therapy once a patient is determined to be clinically stable and are able to tolerate oral medications. Patient identified as appropriate candidate for IV to PO conversion of LVQ based on the following criteria: * Afebrile for greater than or equal to 12 hours * Receiving oral/enteral medications and/or tolerating oral/enteral diet for greater than 24 hours * Improvement in clinical condition evidenced by .. WBC count of 21 10^3/uL and trending downward, resolution of signs/symptoms of illness * Hemodynamically stable or * Receiving oral medications and/or tolerating oral diet for greater than 24 hours * Patient does not meet criteria for use of intravenous proton pump inhibitors ( negative for GI bleed, hypersecretory conditions, GERD associated with erosive esophagitis & unable to take PO) Automatic conversion to: LVQ 750mg PO every 48 hours
[2016-11-19] MEDS ORDERED: DAPTOMYCIN CONSULT ACTIVE PRN ×2 (14:00)
[2016-11-19 16:00] VITALS: BP 97/66; PULSE 74; TEMP 36.4; O2SAT 96
[2016-11-19 16:30] VITALS: O2SAT 96
[2016-11-19] MEDS: DAPTOmycin IV 500 MG in SODIUM CHLORIDE 0.9% 50ML 50 ML IV SCH (17:07)
--- NOTE | 2016-11-19 17:19 | DIAGNOSTIC IMAGING REPORT ---
CHEST ONE VIEW PORTABLE CLINICAL HISTORY: picc placement right arm COMPARISON STUDY: 11/16/2016 FINDINGS: The heart is enlarged. There is persistent pulmonary vascular congestion. There is left basilar atelectasis/consolidation. There is mild superior mediastinal soft tissue prominence. There is a right-sided PICC catheter which is coiled at the level the right axilla. The catheter should be repositioned.[ IMPRESSION: 1. The right-sided PICC catheter is coiled in the right axillary level. The catheter should be repositioned 2. Cardiomegaly and pulmonary vascular congestion 3. Superior mediastinal fullness 4. Left basal atelectasis/consolidation Electronically signed by: Rafael Bowden M.D. 11/19/2016 5:17 PM Dictated Date/Time: 11/19/2016 5:16 PM
[2016-11-19 18:42] VITALS: O2SAT 96
[2016-11-19] MEDS: MIRTAZAPINE TAB 15 MG TAB PO SCH (20:33)
[2016-11-19 23:57] VITALS: BP 99/65; PULSE 73; TEMP 36.6; O2SAT 100
--- NOTE | 2016-11-20 00:53 | Hospitalist Progress Note ---
Hospitalist Progress Note Date of Service Nov 19, 2016. Subjective Pt evaluation today including: conversation w/ patient Patient with no complaints Objective Vital Signs Date Time Temp Pulse Resp B/P (MAP) Pulse Ox O2 Delivery O2 Flow Rate FiO2 11/19/16 23:57 36.6 73 20 99/65 (76) 100 Nasal Cannula 2.0 11/19/16 18:42 96 11/19/16 16:30 96 Nasal Cannula 1.0 11/19/16 16:00 36.4 74 18 97/66 (76) 96 Nasal Cannula 1.0 11/19/16 08:30 Room Air 11/19/16 07:14 36.7 96 20 124/74 (91) 93 Nasal Cannula 2.0 Physical Exam General Appearance: no apparent distress ENT: hearing grossly normal Respiratory/Chest: lungs clear Cardiovascular: regular rate, rhythm Abdomen: non tender Extremities: + inflammation (continued improvement) Laboratory Results Last 24 Hours Test 11/19/16 08:07 White Blood Count 21.94 K/uL Red Blood Count 4.34 M/uL Hemoglobin 10.8 g/dL Hematocrit 35.2 % Mean Corpuscular Volume 81.1 fL Mean Corpuscular Hemoglobin 24.9 pg Mean Corpuscular Hemoglobin Concent 30.7 g/dl Platelet Count 333 K/uL Mean Platelet Volume 10.4 fL Neutrophils (%) (Auto) 79.9 % Lymphocytes (%) (Auto) 6.2 % Monocytes (%) (Auto) 8.8 % Eosinophils (%) (Auto) 4.1 % Basophils (%) (Auto) 0.2 % Neutrophils # (Auto) 17.54 K/uL Lymphocytes # (Auto) 1.36 K/uL Monocytes # (Auto) 1.92 K/uL Eosinophils # (Auto) 0.90 K/uL Basophils # (Auto) 0.04 K/uL RDW Standard Deviation 50.5 fL RDW Coefficient of Variation 16.8 % Immature Granulocyte % (Auto) 0.8 % Immature Granulocyte # (Auto) 0.18 K/uL Sodium Level 133 mmol/L Potassium Level 3.7 mmol/L Chloride Level 91 mmol/L Carbon Dioxide Level 35 mmol/L Anion Gap 7.0 mmol/L Blood Urea Nitrogen 52 mg/dl Creatinine 1.50 mg/dl Est Creatinine Clear Calc Drug Dose 31.6 ml/min Estimated GFR () 36.2 Estimated GFR (Non- 31.2 BUN/Creatinine Ratio 34.9 Random Glucose 124 mg/dl Calcium Level 9.5 mg/dl Assessment and Plan (1) Left leg cellulitis Assessment & Plan: Will need PICC line discussed with the patient patient agrees 6 weeks of antibiotics will be required IV (2) Leukocytosis (3) Postoperative wound infection Assessment & Plan: Input of infectious disease and wound care appreciated (4) HTN (hypertension) Problem Qualifiers (1) Leukocytosis: Leukocytosis type: unspecified Qualified Codes: D72.829 - Elevated white blood cell count, unspecified
[2016-11-20 07:47] VITALS: BP 130/67; PULSE 94; TEMP 36.8; O2SAT 96
[2016-11-20 08:43] LABS: BASO % 0.2 %; BASO ABS # 0.04 K/uL (0-0.2); COMPLETE YES; EOS % 3.8 %; HEMATOCRIT 33.7 % (37-47); IG% 1.6 %; LYMPH ABS # 1.61 K/uL (1.2-3.4); MEAN CORPUSCULAR HEMOGLOBIN 25.2 pg (25-34); MEAN CORPUSCULAR HGB CONC 31.2 g/dl (32-36); MEAN PLATELET VOLUME 9.8 fL (7.4-10.4); MONO % 9.9 %; NEUT % 76.5 %; PLATELET COUNT 315 K/uL (130-400); RED BLOOD COUNT 4.16 M/uL (4.2-5.4); WHITE BLOOD COUNT 20.15 K/uL (4.8-10.8)
--- NOTE | 2016-11-20 08:44 | DIAGNOSTIC IMAGING REPORT ---
CHEST ONE VIEW PORTABLE CLINICAL HISTORY: picc placement left arm COMPARISON STUDY: 11/19/2016 FINDINGS: The heart remains enlarged. There is persistent pulmonary vascular congestion. There is stable superior mediastinal soft tissue prominence. The right-sided PICC catheter has been removed. A left-sided PICC catheter has been placed. The tip projects over the region of the atriocaval junction. There is persistent left basilar atelectasis/consolidation.[ IMPRESSION: 1. Interval removal of the right-sided PICC catheter 2. Interval placement of a left-sided PICC catheter. The tip projects over the region of the atriocaval junction 3. Cardiomegaly and pulmonary vascular congestion 4. Stable left basilar atelectasis/consolidation Electronically signed by: Rafael Bowden M.D. 11/20/2016 8:43 AM Dictated Date/Time: 11/20/2016 8:41 AM
[2016-11-20] MEDS: METOPROLOL SUCC 25MG EXT REL TAB PO SCH (09:02)
[2016-11-20] MEDS: CARBIDOPA/LEVODOPA 25/100MG TAB PO SCH (09:02)
[2016-11-20] MEDS: SERTRALINE HCL 100 MG TAB PO SCH (09:03)
[2016-11-20] MEDS: ROPINIROLE HCL 1 MG TAB PO SCH ×3 (09:03→20:23)
[2016-11-20] MEDS: DOCUSATE SODIUM/SENNA 50/8.6MG TAB PO SCH (09:03)
[2016-11-20] MEDS: PANTOprazole SOD 40 MG TAB PO SCH (09:03)
[2016-11-20] MEDS: ATORVASTATIN 20 MG TAB PO SCH (09:04)
[2016-11-20] MEDS: DOCUSATE SODIUM 100 MG CAP PO SCH ×2 (09:04→20:23)
[2016-11-20] MEDS: EZETIMIBE 10MG TAB PO SCH (09:04)
[2016-11-20] MEDS: LACTOBACILLUS ACIDOPHILUS (FLORANEX) TAB PO SCH ×3 (09:04→17:41)
[2016-11-20] MEDS: CEROVITE ADV FORMULA TAB PO SCH (09:05)
[2016-11-20] MEDS: SPIRONOLACTONE 25 MG TAB PO SCH ×2 (09:05→20:23)
[2016-11-20 09:10] LABS: BUN/CREATININE RATIO 38.5 (10-20); CALCIUM 9.5 mg/dl (8.5-10.1); CREATININE 1.3 mg/dl (0.60-1.20); POTASSIUM 3.6 mmol/L (3.5-5.1)
[2016-11-20] MEDS: LORAZEPAM 0.5 MG TAB PO SCH ×3 (09:15→20:23)
[2016-11-20] MEDS: LEVOFLOXACIN 750 MG TAB PO SCH (11:43)
[2016-11-20] MEDS ORDERED: MICONAZOLE NITRATE POWDER 43 GM ONE (12:19)
[2016-11-20] MEDS ORDERED: NURSING DECISION MEDICATION ORDER SCH (15:00)
[2016-11-20] MEDS ORDERED: MICONAZOLE NITRATE POWDER 43 GM EXT PRN (15:15)
--- NOTE | 2016-11-20 15:53 | Hospitalist Progress Note ---
Hospitalist Progress Note Date of Service Nov 20, 2016. Subjective Pt evaluation today including: conversation w/ patient, conversation w/ family Patient feeling better cellulitis improving Skin: + problem reported (cellulitis of the left lower leg) Objective Vital Signs Date Time Temp Pulse Resp B/P (MAP) Pulse Ox O2 Delivery O2 Flow Rate FiO2 11/20/16 15:15 Nasal Cannula 2.0 11/20/16 08:30 Nasal Cannula 2.0 11/20/16 07:47 36.8 94 16 130/67 (88) 96 Nasal Cannula 2.0 11/20/16 00:01 Nasal Cannula 2.0 11/19/16 23:57 36.6 73 20 99/65 (76) 100 Nasal Cannula 2.0 11/19/16 18:42 96 11/19/16 16:30 96 Nasal Cannula 1.0 11/19/16 16:00 36.4 74 18 97/66 (76) 96 Nasal Cannula 1.0 Physical Exam General Appearance: no apparent distress ENT: hearing grossly normal Neck: trachea midline Respiratory/Chest: lungs clear Cardiovascular: regular rate, rhythm Abdomen: normal bowel sounds Extremities: + pertinent finding (cellulitis of the left lower leg improving) Laboratory Results Last 24 Hours Test 11/20/16 08:22 White Blood Count 20.15 K/uL Red Blood Count 4.16 M/uL Hemoglobin 10.5 g/dL Hematocrit 33.7 % Mean Corpuscular Volume 81.0 fL Mean Corpuscular Hemoglobin 25.2 pg Mean Corpuscular Hemoglobin Concent 31.2 g/dl Platelet Count 315 K/uL Mean Platelet Volume 9.8 fL Neutrophils (%) (Auto) 76.5 % Lymphocytes (%) (Auto) 8.0 % Monocytes (%) (Auto) 9.9 % Eosinophils (%) (Auto) 3.8 % Basophils (%) (Auto) 0.2 % Neutrophils # (Auto) 15.41 K/uL Lymphocytes # (Auto) 1.61 K/uL Monocytes # (Auto) 2.00 K/uL Eosinophils # (Auto) 0.77 K/uL Basophils # (Auto) 0.04 K/uL RDW Standard Deviation 50.4 fL RDW Coefficient of Variation 16.9 % Immature Granulocyte % (Auto) 1.6 % Immature Granulocyte # (Auto) 0.32 K/uL Sodium Level 132 mmol/L Potassium Level 3.6 mmol/L Chloride Level 90 mmol/L Carbon Dioxide Level 35 mmol/L Anion Gap 7.0 mmol/L Blood Urea Nitrogen 50 mg/dl Creatinine 1.30 mg/dl Est Creatinine Clear Calc Drug Dose 36.5 ml/min Estimated GFR () 43.0 Estimated GFR (Non- 37.1 BUN/Creatinine Ratio 38.5 Random Glucose 90 mg/dl Calcium Level 9.5 mg/dl Assessment and Plan (1) Left leg cellulitis Assessment & Plan: Clinically improving continue current antibiotics will need 6 weeks total therapy plan on potential discharge to nursing home facility on Tuesday discussed with the patient's daughter. (2) Leukocytosis (3) Postoperative wound infection Assessment & Plan: Continue wound VAC (4) HTN (hypertension) Problem Qualifiers (1) Leukocytosis: Leukocytosis type: unspecified Qualified Codes: D72.829 - Elevated white blood cell count, unspecified
[2016-11-20 16:02] VITALS: BP 98/53; PULSE 69; TEMP 36.4; O2SAT 99
[2016-11-20] MEDS: DAPTOmycin IV 500 MG in SODIUM CHLORIDE 0.9% 50ML 50 ML IV SCH (16:29)
[2016-11-20] MEDS: MIRTAZAPINE TAB 15 MG TAB PO SCH (20:23)
[2016-11-21 00:10] VITALS: BP 116/73; PULSE 69; TEMP 36.5; O2SAT 97
[2016-11-21] MEDS: TRAMADOL HCL 50 MG TAB PO PRN ×2 (02:35→14:20)
[2016-11-21 07:40] VITALS: BP 122/75
[2016-11-21] MEDS: CARBIDOPA/LEVODOPA 25/100MG TAB PO SCH (07:41)
[2016-11-21] MEDS: ATORVASTATIN 20 MG TAB PO SCH (07:41)
[2016-11-21] MEDS: SERTRALINE HCL 100 MG TAB PO SCH (07:41)
[2016-11-21] MEDS: DOCUSATE SODIUM/SENNA 50/8.6MG TAB PO SCH (07:41)
[2016-11-21] MEDS: LACTOBACILLUS ACIDOPHILUS (FLORANEX) TAB PO SCH ×3 (07:42→17:14)
[2016-11-21] MEDS: CEROVITE ADV FORMULA TAB PO SCH (07:42)
[2016-11-21] MEDS: PANTOprazole SOD 40 MG TAB PO SCH (07:42)
[2016-11-21] MEDS: ROPINIROLE HCL 1 MG TAB PO SCH ×3 (07:42→20:35)
[2016-11-21] MEDS: EZETIMIBE 10MG TAB PO SCH (07:42)
[2016-11-21] MEDS: DOCUSATE SODIUM 100 MG CAP PO SCH ×2 (07:42→20:35)
[2016-11-21] MEDS: METOPROLOL SUCC 25MG EXT REL TAB PO SCH (07:42)
[2016-11-21 07:45] VITALS: BP 93/62; PULSE 74; TEMP 36.5; O2SAT 95
[2016-11-21] MEDS: LORAZEPAM 0.5 MG TAB PO SCH ×3 (07:48→20:00)
[2016-11-21 08:08] LABS: BASO % 0.2 %; BASO ABS # 0.04 K/uL (0-0.2); COMPLETE YES; EOS % 3.2 %; HEMATOCRIT 34.5 % (37-47); IG% 2.1 %; LYMPH % 9.3 %; MEAN CELL VOLUME 80.6 fL (80-100); MEAN PLATELET VOLUME 9.6 fL (7.4-10.4); MONO % 10.5 %; NEUT % 74.7 %; PLATELET COUNT 320 K/uL (130-400); RED BLOOD COUNT 4.28 M/uL (4.2-5.4); WHITE BLOOD COUNT 20.42 K/uL (4.8-10.8)
[2016-11-21 08:37] LABS: BUN/CREATININE RATIO 36.9 (10-20); CALCIUM 9.5 mg/dl (8.5-10.1); CREATININE 1.3 mg/dl (0.60-1.20)
[2016-11-21] MEDS: DAPTOmycin IV 500 MG in SODIUM CHLORIDE 0.9% 50ML 50 ML IV SCH (16:01)
[2016-11-21 16:21] VITALS: BP 113/60; PULSE 72; TEMP 36.3; O2SAT 98
[2016-11-21] MEDS ORDERED: NURSING VERBAL MED ORDER ONE (18:45)
--- NOTE | 2016-11-21 18:51 | Hospitalist Progress Note ---
Hospitalist Progress Note Date of Service Nov 21, 2016. Subjective Pt evaluation today including: conversation w/ patient Patient with no complaints Medications Last Resulted CBC 11/21/16 07:50 Red Blood Count 4.28, Mean Corpuscular Volume 80.6, Mean Corpuscular Hemoglobin 25.0, Mean Corpuscular Hemoglobin Concent 31.0, Mean Platelet Volume 9.6, Neutrophils (%) (Auto) 74.7, Lymphocytes (%) (Auto) 9.3, Monocytes (%) (Auto) 10.5, Eosinophils (%) (Auto) 3.2, Basophils (%) (Auto) 0.2, Neutrophils # (Auto ) 15.24, Lymphocytes # (Auto) 1.90, Monocytes # (Auto) 2.15, Eosinophils # (Auto ) 0.66, Basophils # (Auto) 0.04 Last Resulted BMP 11/21/16 07:50 Objective Vital Signs Date Time Temp Pulse Resp B/P (MAP) Pulse Ox O2 Delivery O2 Flow Rate FiO2 11/21/16 16:21 36.3 72 21 113/60 (77) 98 Nasal Cannula 2.0 11/21/16 15:16 Nasal Cannula 11/21/16 08:30 Nasal Cannula 11/21/16 07:45 36.5 74 22 93/62 (72) 95 Nasal Cannula 2.0 11/21/16 07:40 122/75 (91) 11/21/16 00:10 36.5 69 20 116/73 (87) 97 Nasal Cannula 2.0 11/21/16 00:05 Nasal Cannula 2.0 11/20/16 20:30 Nasal Cannula 2.0 Physical Exam General Appearance: no apparent distress Eyes: normal inspection ENT: hearing grossly normal Neck: trachea midline Respiratory/Chest: lungs clear Cardiovascular: regular rate, rhythm Extremities: + pertinent finding (cellulitic changes improving on her left leg) Laboratory Results Last 24 Hours Test 11/21/16 07:50 White Blood Count 20.42 K/uL Red Blood Count 4.28 M/uL Hemoglobin 10.7 g/dL Hematocrit 34.5 % Mean Corpuscular Volume 80.6 fL Mean Corpuscular Hemoglobin 25.0 pg Mean Corpuscular Hemoglobin Concent 31.0 g/dl Platelet Count 320 K/uL Mean Platelet Volume 9.6 fL Neutrophils (%) (Auto) 74.7 % Lymphocytes (%) (Auto) 9.3 % Monocytes (%) (Auto) 10.5 % Eosinophils (%) (Auto) 3.2 % Basophils (%) (Auto) 0.2 % Neutrophils # (Auto) 15.24 K/uL Lymphocytes # (Auto) 1.90 K/uL Monocytes # (Auto) 2.15 K/uL Eosinophils # (Auto) 0.66 K/uL Basophils # (Auto) 0.04 K/uL RDW Standard Deviation 49.9 fL RDW Coefficient of Variation 16.8 % Immature Granulocyte % (Auto) 2.1 % Immature Granulocyte # (Auto) 0.43 K/uL Sodium Level 133 mmol/L Potassium Level 4.0 mmol/L Chloride Level 93 mmol/L Carbon Dioxide Level 34 mmol/L Anion Gap 6.0 mmol/L Blood Urea Nitrogen 48 mg/dl Creatinine 1.30 mg/dl Est Creatinine Clear Calc Drug Dose 36.5 ml/min Estimated GFR () 43.0 Estimated GFR (Non- 37.1 BUN/Creatinine Ratio 36.9 Random Glucose 95 mg/dl Calcium Level 9.5 mg/dl Assessment and Plan (1) Left leg cellulitis Assessment & Plan: Will need 6 weeks total of IV therapy for cellulitis improving with IV daptomycin. (2) Leukocytosis Assessment & Plan: Follow CBC (3) Postoperative wound infection (4) HTN (hypertension) Problem Qualifiers (1) Leukocytosis: Leukocytosis type: unspecified Qualified Codes: D72.829 - Elevated white blood cell count, unspecified
[2016-11-21] MEDS: OXYCODONE/ACETAMINOPHEN 5-325 TAB PO PRN (19:28)
[2016-11-21] MEDS: MIRTAZAPINE TAB 15 MG TAB PO SCH (20:36)
[2016-11-21 23:45] VITALS: BP 102/65; PULSE 69; TEMP 36.6; O2SAT 96
[2016-11-22] MEDS: TRAMADOL HCL 50 MG TAB PO PRN (00:04)
[2016-11-22 07:11] VITALS: BP 131/80; PULSE 79; TEMP 36.5; O2SAT 96
[2016-11-22] MEDS: ROPINIROLE HCL 1 MG TAB PO SCH ×3 (07:40→19:53)
[2016-11-22] MEDS: ATORVASTATIN 20 MG TAB PO SCH (07:40)
[2016-11-22] MEDS: LACTOBACILLUS ACIDOPHILUS (FLORANEX) TAB PO SCH ×3 (07:40→17:20)
[2016-11-22] MEDS: DOCUSATE SODIUM 100 MG CAP PO SCH ×2 (07:40→19:53)
[2016-11-22] MEDS: DOCUSATE SODIUM/SENNA 50/8.6MG TAB PO SCH (07:41)
[2016-11-22] MEDS: CEROVITE ADV FORMULA TAB PO SCH (07:41)
[2016-11-22] MEDS: METOPROLOL SUCC 25MG EXT REL TAB PO SCH (07:41)
[2016-11-22] MEDS: CARBIDOPA/LEVODOPA 25/100MG TAB PO SCH (07:41)
[2016-11-22] MEDS: SPIRONOLACTONE 25 MG TAB PO SCH (07:41)
[2016-11-22] MEDS: EZETIMIBE 10MG TAB PO SCH (07:42)
[2016-11-22] MEDS: SERTRALINE HCL 100 MG TAB PO SCH (07:42)
[2016-11-22] MEDS: PANTOprazole SOD 40 MG TAB PO SCH (07:42)
[2016-11-22] MEDS: LORAZEPAM 0.5 MG TAB PO SCH ×3 (07:45→19:52)
[2016-11-22 08:17] LABS: BASO % 0.2 %; BASO ABS # 0.05 K/uL (0-0.2); COMPLETE YES; EOS % 3.4 %; HEMATOCRIT 34.8 % (37-47); IG% 3.5 %; LYMPH % 10.2 %; LYMPH ABS # 2.12 K/uL (1.2-3.4); MEAN CELL VOLUME 81.7 fL (80-100); MEAN CORPUSCULAR HEMOGLOBIN 25.8 pg (25-34); MEAN CORPUSCULAR HGB CONC 31.6 g/dl (32-36); MEAN PLATELET VOLUME 9.7 fL (7.4-10.4); MONO % 10.4 %; NEUT % 72.3 %; PLATELET COUNT 312 K/uL (130-400); RED BLOOD COUNT 4.26 M/uL (4.2-5.4); WHITE BLOOD COUNT 20.75 K/uL (4.8-10.8)
[2016-11-22 08:43] LABS: BUN/CREATININE RATIO 30.4 (10-20); CALCIUM 9.4 mg/dl (8.5-10.1); CREATININE 1.4 mg/dl (0.60-1.20); POTASSIUM 4.2 mmol/L (3.5-5.1)
[2016-11-22] MEDS: LEVOFLOXACIN 750 MG TAB PO SCH (11:52)
[2016-11-22] MEDS: OXYCODONE/ACETAMINOPHEN 5-325 TAB PO PRN (14:10)
--- NOTE | 2016-11-22 15:48 | Progress Note ---
Subjective Date of Service: Nov 22, 2016. Subjective this pt is pleasantly confused, she has no pain in leg, wound vac is in placed. she states she overall is feeling better Problem List Medical Problems: (1) Failure of outpatient treatment Status: Acute (2) History of infection with vancomycin resistant Enterococcus(VRE) Status: Acute (3) Left leg cellulitis Status: Acute (4) Leukocytosis Status: Acute (5) Serum creatinine raised Status: Acute Review of Systems Constitutional: + weakness, + fatigue, No fever Respiratory: No cough, No sputum, No shortness of breath, No dyspnea on exertion Cardiac: + edema, No chest pain, No orthopnea, No PND Abdomen: No pain, No nausea, No vomiting, No diarrhea Skin: + problem reported (wound care has documented by photograph, ) Objective Vital Signs Date Time Temp Pulse Resp B/P (MAP) Pulse Ox O2 Delivery O2 Flow Rate FiO2 11/22/16 07:11 36.5 79 20 131/80 (97) 96 Nasal Cannula 2.0 11/22/16 00:00 Nasal Cannula 2.0 11/21/16 23:45 36.6 69 20 102/65 (77) 96 Nasal Cannula 2.0 11/21/16 20:00 Nasal Cannula 2.0 11/21/16 16:21 36.3 72 21 113/60 (77) 98 Nasal Cannula 2.0 11/21/16 15:16 Nasal Cannula Physical Exam General Appearance: + mild distress, + obese Neck: supple, no JVD Respiratory/Chest: chest non-tender, + decreased breath sounds Cardiovascular: regular rate, rhythm, no murmur Abdomen: normal bowel sounds, non tender, soft Extremities: + pertinent finding (wound looks clean little surrounding pain and no fluctuance) Neurologic/Psychiatric: alert, + disoriented Laboratory Results Last 24 Hours Test 11/22/16 07:53 White Blood Count 20.75 K/uL Red Blood Count 4.26 M/uL Hemoglobin 11.0 g/dL Hematocrit 34.8 % Mean Corpuscular Volume 81.7 fL Mean Corpuscular Hemoglobin 25.8 pg Mean Corpuscular Hemoglobin Concent 31.6 g/dl Platelet Count 312 K/uL Mean Platelet Volume 9.7 fL Neutrophils (%) (Auto) 72.3 % Lymphocytes (%) (Auto) 10.2 % Monocytes (%) (Auto) 10.4 % Eosinophils (%) (Auto) 3.4 % Basophils (%) (Auto) 0.2 % Neutrophils # (Auto) 15.00 K/uL Lymphocytes # (Auto) 2.12 K/uL Monocytes # (Auto) 2.15 K/uL Eosinophils # (Auto) 0.70 K/uL Basophils # (Auto) 0.05 K/uL RDW Standard Deviation 51.2 fL RDW Coefficient of Variation 17.1 % Immature Granulocyte % (Auto) 3.5 % Immature Granulocyte # (Auto) 0.73 K/uL Assessment and Plan (1) Left leg cellulitis (2) Leukocytosis (3) Postoperative wound infection (4) HTN (hypertension) 86 F with continued left leg cellulitis, recent concern for nec fascitis, and was at [facility] for surgical evaluation and wound vac found to have VRE at that time , Here with Leukocytosis, no clear new infection, smoldering immature wbc, may be from chronic infection, will have follow with outpt ID and if not resolved after infection is treated will consider Heme eval Cellulitis on IV daptomycin, planning on 6 week course Afib continued toprol xl 25,not on anticoagulation Chronic diastolic heart failure and CKD 3, toprol and spironolactone Depression zoloft and remeron Problem Qualifiers (1) Leukocytosis: Leukocytosis type: unspecified Qualified Codes: D72.829 - Elevated white blood cell count, unspecified
[2016-11-22] MEDS: DAPTOmycin IV 500 MG in SODIUM CHLORIDE 0.9% 50ML 50 ML IV SCH (16:09)
[2016-11-22 16:21] VITALS: BP 111/79; PULSE 70; TEMP 36.5; O2SAT 96
[2016-11-22] MEDS: MIRTAZAPINE TAB 15 MG TAB PO SCH (19:54)
[2016-11-22 23:36] VITALS: BP 111/71; PULSE 68; TEMP 36.8; O2SAT 96
[2016-11-23] MEDS: OXYCODONE/ACETAMINOPHEN 5-325 TAB PO PRN (03:03)
[2016-11-23 07:48] VITALS: BP 104/69; PULSE 98; TEMP 36.9; O2SAT 98
[2016-11-23 08:27] LABS: HEMATOCRIT 35.4 % (37-47); MEAN CELL VOLUME 80.1 fL (80-100); MEAN CORPUSCULAR HEMOGLOBIN 23.8 pg (25-34); MEAN CORPUSCULAR HGB CONC 29.7 g/dl (32-36); MEAN PLATELET VOLUME 9.4 fL (7.4-10.4); PLATELET COUNT 346 K/uL (130-400); RED BLOOD COUNT 4.42 M/uL (4.2-5.4); WHITE BLOOD COUNT 23.28 K/uL (4.8-10.8)
[2016-11-23 08:59] LABS: BUN/CREATININE RATIO 29.4 (10-20); CALCIUM 9.3 mg/dl (8.5-10.1); CREATININE 1.6 mg/dl (0.60-1.20); POTASSIUM 4.3 mmol/L (3.5-5.1)
[2016-11-23 09:01] LABS: BASO % 0.3 %; BASO ABS # 0.06 K/uL (0-0.2); COMPLETE YES; EOS % 2.5 %; IG% 3.2 %; LYMPH % 9.5 %; LYMPH ABS # 2.21 K/uL (1.2-3.4); MONO % 9.6 %; NEUT % 74.9 %
[2016-11-23] MEDS ORDERED: OXYC1CAP5 PO (09:24)
[2016-11-23] MEDS ORDERED: ATV/1 PO (09:24)
[2016-11-23] MEDS ORDERED: TRAM-10 PO (09:24)
[2016-11-23] MEDS ORDERED: DAPT500I IV (09:24)
[2016-11-23] MEDS ORDERED: LVQ750 PO (09:26)
--- NOTE | 2016-11-23 09:28 | Discharge Instructions ---
Discharge Instructions Date of Service Nov 23, 2016. Admission Reason for Admission: Cellulitis Discharge Discharge Diagnosis / Problem: leukocytosis and chronic left hip infection Discharge Goals Goal(s): Diagnostic testing, Therapeutic intervention Activity Recommendations Activity Level: Assistance Required Therapies: Physical Therapy, Occupational Therapy Shower/Bathe: keep incision dry . Additional Information Patient informed of condition: Yes Advance Directives: Yes DNR: Yes Level of Care: Skilled Communicable Disease: No Prognosis: Stable Fisher Catheter: No Instructions / Follow-Up Instructions / Follow-Up 86 F with continued left leg cellulitis, recent concern for nec fascitis, and was at [facility] for surgical evaluation and wound vac found to have VRE at that time , Here with Leukocytosis, no clear new infection, smoldering immature wbc, may be from chronic infection, will have follow with outpt ID at wound care center in short duration and if not resolved after infection is treated will consider Heme eval Cellulitis on IV daptomycin, alternate day levaquin, planning on 6 week course Afib continued toprol xl 25,not on anticoagulation Chronic diastolic heart failure and CKD 3, toprol and spironolactone Depression zoloft and remeron Current Hospital Diet Patient's current hospital diet: AHA Diet (Heart Healthy), Low Sodium Diet (2gm Na) Discharge Diet Recommended Diet: Low Sodium Diet (2gm Na) Pending Studies Studies pending at discharge: no Medical Emergencies . Who to Call and When: Medical Emergencies: If at any time you feel your situation is an emergency, please call 911 immediately. . Non-Emergent Contact Non-Emergency issues call your: Specialist (indectious disease and wound care) Call Non-Emergent contact if: temperature is above 101, your pain is unusual for you . . "Provider Documentation" section prepared by Gilles Cronin. . Core Measure Problem Core Measures: None
[2016-11-23] MEDS: LORAZEPAM 0.5 MG TAB PO SCH ×2 (09:30→13:43)
[2016-11-23] MEDS: LACTOBACILLUS ACIDOPHILUS (FLORANEX) TAB PO SCH ×2 (09:31→12:22)
[2016-11-23] MEDS: DOCUSATE SODIUM/SENNA 50/8.6MG TAB PO SCH (09:31)
[2016-11-23] MEDS: ATORVASTATIN 20 MG TAB PO SCH (09:31)
[2016-11-23] MEDS: DOCUSATE SODIUM 100 MG CAP PO SCH (09:31)
[2016-11-23] MEDS: EZETIMIBE 10MG TAB PO SCH (09:31)
[2016-11-23] MEDS: SERTRALINE HCL 100 MG TAB PO SCH (09:31)
[2016-11-23] MEDS: CEROVITE ADV FORMULA TAB PO SCH (09:32)
[2016-11-23] MEDS: ROPINIROLE HCL 1 MG TAB PO SCH ×2 (09:32→13:43)
[2016-11-23] MEDS: METOPROLOL SUCC 25MG EXT REL TAB PO SCH (09:32)
[2016-11-23] MEDS: CARBIDOPA/LEVODOPA 25/100MG TAB PO SCH (09:32)
[2016-11-23] MEDS: PANTOprazole SOD 40 MG TAB PO SCH (09:32)
[2016-11-23] MEDS: SPIRONOLACTONE 25 MG TAB PO SCH (09:32)
[2016-11-23 10:32] VITALS: BP 104/69; PULSE 98; TEMP 36.9; O2SAT 98
--- NOTE | 2016-11-23 13:40 | Discharge Summary ---
Discharge Summary Date of Service Nov 23, 2016. Discharge Summary Admission Date: Nov 16, 2016 at 16:32 Discharge Date: Nov 23, 2016 Discharge Disposition: assisted facility Principal Diagnosis: chronic left hip infection, chronic leukocytosis Medication Reconciliation New Medications: Daptomycin (Daptomycin) 500 Mg Inj 500 MG IV DAILY, #28 DOSE Levofloxacin (Levofloxacin) 750 Mg Tab 750 MG PO Q2D@1100, #14 TAB Continued Medications: Acetaminophen (Tylenol) 325 Mg Tab 650 MG PO q4hrs, TAB Atorvastatin (Lipitor) 20 Mg Tab 20 MG PO DAILY, TAB Carbidopa/Levodopa (Sinemet 25MG/100MG) Tab 1 TAB PO DAILY, TAB Docusate Sodium (Docusate Sodium) 100 Mg Cap 100 MG PO BID, CAP Ezetimibe (Zetia) 10 Mg Tab 10 MG PO DAILY, TAB Furosemide (Lasix) 80 Mg Tab 80 MG PO BID, TAB Lorazepam (Ativan) 1 Mg Tab 0.5 MG PO TID, #30 TAB (This prescription has been renewed) Metoprolol Succ (Toprol Xl) (Toprol-Xl) 25 Mg Tabcr 25 MG PO DAILY, #30 TAB Multiple Vitamins W/ Minerals (Thera-M) 1 Tab Tab 1 TAB PO DAILY Omeprazole (Prilosec) 20 Mg Capcr 20 MG PO DAILY, CAP Ondansetron Hcl (Zofran) 4 Mg Tab 4 MG PO q4hrs PRN for Nausea, TAB Oxycodone Hcl (Oxycodone Hcl) 5 Mg Cap 5 MG PO Q4 PRN for Pain, #30 CAP (This prescription has been renewed) Polyethylene Glycol 3350 (Miralax) 1 Pow Pow 17 GM PO DAILY PRN for Constipation, #527 GM Probiotic Product (Acidophilus) 1 Cap Cap 1 CAP PO DAILY Ropinirole (Requip) 1 Mg Tab 2 MG PO TID, TAB Sennosides-Docusate Sodium (Senna Plus) 1 Tab Tab 1 TAB PO DAILY Sertraline (Zoloft) 100 Mg Tab 1 TAB PO DAILY for 90 Days, #90 TAB 1 Refill Spironolactone (Aldactone) 25 Mg Tab 25 MG PO DAILY, TAB Tramadol (Ultram) 50 Mg Tab 1 TAB PO TID PRN for Pain for 30 Days, #90 TAB (This prescription has been renewed) Discontinued Medications: Sulfa/Trimethoprim (Bactrim Ds 800MG/160MG) Tab 1 TAB PO BID for 7 Days, #6 TAB Discharge Exam Review of Systems: Constitutional: + weakness, + fatigue, No fever, No chills Respiratory: + cough, + sputum, + wheezing Cardiovascular: + edema, No chest pain Abdomen: + pain, + nausea, + vomiting, + diarrhea Musculoskeletal: + joint pain, + muscle pain Neurologic: + weakness, + balance problems Psychiatric: + depression symptoms, No anhedonism Hospital Course (1) Left leg cellulitis (2) Leukocytosis (3) Postoperative wound infection (4) HTN (hypertension) 86 F with continued left leg cellulitis, recent concern for nec fascitis, and was at [facility] [place] for surgical evaluation and wound vac found to have VRE at that time , Here with Leukocytosis, no clear new infection, smoldering immature wbc, may be from chronic infection, will have follow with outpt ID and if not resolved after infection is treated will consider Heme eval Cellulitis on IV daptomycin, renal dosed levaquin, planning on 6 week course, Afib continued toprol xl 25,not on anticoagulation Chronic diastolic heart failure and CKD 3, toprol and spironolactone Depression zoloft and remeron Total Time Spent: Greater than 30 minutes This includes examination of the patient, discharge planning, medication reconciliation, and communication with other providers. Discharge Instructions Please refer to the electronic Patient Visit Report (Discharge Instructions) for additional information. Problem Qualifiers (1) Leukocytosis: Leukocytosis type: unspecified Qualified Codes: D72.829 - Elevated white blood cell count, unspecified (2) Postoperative wound infection: Encounter type: subsequent encounter Qualified Codes: T81.4XXD - Infection following a procedure, subsequent encounter (3) HTN (hypertension): Hypertension type: essential hypertension Qualified Codes: I10 - Essential ( primary) hypertension
[2016-11-23] MEDS: TRAMADOL HCL 50 MG TAB PO PRN (13:43)
== END 2016-11-23 14:02 | DRG 603 ==
LOC: EDBD 13:38 → C.EDC 13:40 → C.4E 16:32 → ENRESERV 16:55
PROVIDERS: ADMIT Hospitalist; ATTEND Internal Medicine
DX: L03.116 Cellulitis of left lower limb (principal); N17.9 Acute kidney failure, unspecified; I50.32 Chronic diastolic (congestive) heart failure; Z68.43 Body mass index [BMI] 50.0-59.9, adult; Z66 Do not resuscitate; N18.3 Chronic kidney disease, stage 3 (moderate); D72.829 Elevated white blood cell count, unspecified; I48.91 Unspecified atrial fibrillation; I12.9 Hypertensive chronic kidney disease with stage 1 through stage 4 chronic kidney disease, or unspecified chronic kidney disease; E66.9 Obesity, unspecified; F41.9 Anxiety disorder, unspecified; F32.9 Major depressive disorder, single episode, unspecified; Z87.891 Personal history of nicotine dependence; Z91.19 Patient's noncompliance with other medical treatment and regimen